=== PATIENT | female | born 1985 | race Caucasian/White ===

== ENCOUNTER 2020-03-07 15:07 | Outpatient (CLI) | payer OTHER, SELFPAY ==
--- NOTE | ~2020-03-07 | US_ITS ---
EXAMINATION: US breast LT limited HISTORY: Mastodynia of the inner left breast TECHNIQUE: Limited left breast ultrasound is performed. FINDINGS: There is no evidence of focal abnormal cystic or solid mass in the vicinity of the reported left breast pain. IMPRESSION: No specific sonographic correlate is identified for the reported left breast pain. Further evaluation at this time should be based on clinical assessment. Continued follow-up physical examination is rec ommended. BI-RADS Category 1: Negative Reviewed, dictated and finalized at location A. [place] [employer] IMPRESSION: No specific sonographic correlate is identified for the reported left breast pa in. Further evaluation at this time should be based on clinical assessment. Con tinued follow-up physical examination is recommended. BI-RADS Category 1: Negative
== END 2020-03-07 15:08 | disposition home or self-care (01) ==
PROVIDERS: Visit Provider Nurse Practitioner Obstetrics & Gynecology
DX: N64.4 Mastodynia (principal)
CPT/HCPCS: 76642

== ENCOUNTER → 2020-04-20 05:57 | Outpatient (CLI) | payer OTHER, SELFPAY ==
[2020-04-20 19:10] LABS: SARS-CoV-2 RNA PCR Negative
== END ==
PROVIDERS: Visit Provider Obstetrics & Gynecology
DX: Z01.812 Encounter for preprocedural laboratory examination (principal); Z20.822 Contact with and (suspected) exposure to COVID-19
CPT/HCPCS: C9803; U0003; U0005

== ENCOUNTER 2020-04-20 09:00 | Outpatient (CLI) | payer OTHER, SELFPAY ==
--- NOTE | 2020-04-20 09:24 | ECG_ITS ---
Measurements Intervals [place] Rate: 46 P: 47 MT: 130 QRS: 48 QRSD: 98 T: 64 QT: 408 QTc: 358 Interpretive Statements SINUS BRADYCARDIA WITH SINUS ARRHYTHMIA INCOMPLETE RIGHT BUNDLE BRANCH BLOCK ABNORMAL ECG Electronically Signed On 04-20-2020 9:35:27 [employer] by Calin Zavala D.O.
[2020-04-20 09:31] LABS: Hematocrit 40.5 % (37.0-47.0); Hemoglobin 13.7 g/dL (12.0-15.0)
[2020-04-20 09:39] LABS: Anion Gap 6 mmol/L (8-16); Blood Urea Nitrogen 14 mg/dL (7-17); Calcium 9.6 mg/dL (8.4-10.2); Carbon Dioxide 31 mmol/L (22-30); Chloride 103 mmol/L (98-107); Estimated Glomerular Filt Rate > 60; Glucose 69 mg/dL (65-105); Potassium 3.3 mmol/L (3.4-5.0); Sodium 140 mmol/L (137-145)
== END 2020-04-20 09:01 | disposition home or self-care (01) ==
PROVIDERS: PCP Physician Assistant; Visit Provider Anesthesiology
DX: E78.5 Hyperlipidemia, unspecified (principal); D64.9 Anemia, unspecified; I10 Essential (primary) hypertension; Z01.818 Encounter for other preprocedural examination; I45.10 Unspecified right bundle-branch block
CPT/HCPCS: 36415; 80048; 85014; 85018; 93005; C9803; U0003; U0005

== ENCOUNTER 2020-04-24 00:46 | Day surgery (SDC) | payer OTHER, SELFPAY ==
[2020-04-16 15:34] VITALS: BMI 19.1
[2020-04-24] VITALS (8 sets, daily range): BP systolic 96–120; BP diastolic 43–77; PULSE 42–67; RESP 13–15; TEMP 36.5–36.7; O2SAT 97–100
[2020-04-24] MEDS: ACETAMINOPHEN 500 MG TABLET 1000 MG PO (08:19)
[2020-04-24] MEDS: LACTATED RINGERS 1,000 ML 30 ML IV CONT ×2 (08:29→12:56)
[2020-04-24] MEDS: KETOROLAC 15 MG/ML VIAL (*BKC) IV PUSH (08:31)
--- NOTE | 2020-04-24 10:01 | WPDANESEPPF ---
Anes - Initial Pre Proc Eval Procedure: Operation Date: 04/24/20 10:00 Proposed Procedures p Laparoscopic Bilateral Salpingo-Oophorectomy - Renate Tang MD Date/Time: 04/24/20 10:01 Surgeon: Renate Tang MD Pre Op Diagnosis: pelvic pain Patient Data Age: 34 Gender: F Height: 5 ft 1 in Weight: 44.6 kg Last Vital Signs Temp 98.1 F 04/24/20 08:06 Pulse 67 04/24/20 08:06 Resp 14 04/24/20 08:06 BP 118/74 04/24/20 08:06 Pulse Ox 100 04/24/20 08:06 Allergies Allergy/AdvReac Type Severity Reaction Status Date / Time tramadol Allergy Mild Itching Verified 04/24/20 08:13 Home Medications Medication Instructions Recorded Confirmed Type atenolol-chlorthalidone 1 tablet PO DAILY 04/16/20 04/24/20 History cetirizine 10 mg PO DAILY 04/16/20 04/24/20 History dicyclomine 20 mg PO DAILY 04/16/20 04/24/20 History ferrous sulfate [iron] 325 mg PO DAILY 04/16/20 04/24/20 History lovastatin 40 mg PO DAILY 04/16/20 04/24/20 History magnesium oxide 400 mg PO DAILY 04/16/20 04/24/20 History montelukast 10 mg PO DAILY 04/16/20 04/24/20 History omeprazole 20 mg PO DAILY 04/16/20 04/24/20 History sucralfate 1 g PO DAILY 04/16/20 04/24/20 History Patient hx anesthesia problems: none Family hx anesthesia problems: none [facility] Past Medical History Medical History (Updated 04/24/20 @ 09:57 by Pablo Natarajan MD) GERD (gastroesophageal reflux disease) Hyperlipidemia Hypertension Social History Social History Smoking packs per day: 0.5 Smoking cigarettes per day: 10.0 Years smoked: 15 Smoking pack-years: 7.50 Smoking status: Current every day smoker Tobacco type: cigarettes Alcohol intake: never Living arrangements: with family Gender identity (if verbalized by the patient): Female Spiritual care concerns: No Anes - Eval Final PreProcedure Day of Procedure 04/24/20 10:01 Patient weight: normal Heart: regular rate and rhythm Lungs: clear to auscultation Airway: Mallampati scale class III Neurological: alert and oriented Last oral intake: >/= 8 hours ASA classification: III Emergent: no Anesthetic plan: proceed Anesthesia type and monitoring: general ETT and standard monitoring Informed Consent: The patient's anesthetic plan and its attendant risks and benefits were discussed with the patient/family/POA. Questions were solicited and answers provided to the satisfaction of the patient/family/POA.
--- NOTE | 2020-04-24 10:06 | SUR.PREOP ---
1000 updated pt on delay in procedure.
--- NOTE | 2020-04-24 11:19 | WPDHPUPDATE1 ---
History and Physical Update Update Date/Time: 04/24/20 11:19 History and Physical has been reviewed, including an updated exam of the patient. There are NO changes in the patient's condition. Risks, benefits, and alternatives have been discussed and questions answered. Patient agrees to proceed with procedure.
--- NOTE | 2020-04-24 12:59 | P.OP_ITS ---
Procedure Note - Detailed Date of procedure: 04/24/20 Pre-op diagnosis: pelvic pain Procedure performed: Laparoscopic adhesiolysis Adhesiolysis, bilateral oophorectomy Description of procedure: The patient was taken the operating room. She was prepped and draped in the dorsal lithotomy position after induction of general anesthesia. A 5 mm left upper quadrant incision was made in the abdominal skin with a scalpel. A 5 mm trocar was inserted the intra-abdominal cavity under direct visualization of the scope. A 5 mm left lower quadrant incision was made with the scalp on the abdominal skin and a 5 mm trocar was inserted the intra- abdominal cavity under direct visualization of the scope. A 5 mm infraumbilical incision was made with scalpel and a 5 mm trocar was inserted into the intra- abdominal cavity under direct visualization of the scope. Adhesiolysis was performed using sharp and blunt dissection and cautery. The omentum was adherent to the anterior pelvis. In the area were some cautery was performed on the left lower side the ureter was dissected out found to be unharmed and patent the through the level of the uterine artery. The bilateral ovaries were removed. No tubes were visible. The ovary was raised and the infundibulopelvic ligaments were cauterized. The the infundibulopelvic ligament was cauterized scissors. The para ovarian tissue on the pelvic sidewall was cauterized and transected and the ovaries were amputated. There were small enough to take out through a 5 mm trocar. The pelvis was irrigated with copious amounts of normal saline. The pneumoperitoneum was reduced. The trocars were removed. The patient was taken recovery room stable condition. Sponge lap and needle counts were correct x2. Anesthesia: GETA Surgeon: Renate Tang MD Estimated blood loss (mL): 20 Drains: No Packing: No Complications: No immediate complications Condition: stable Disposition: PACU Findings: Streak ovaries, adhesions between the omentum and anterior pelvis. Absent uterus and tubes.
[2020-04-24] MEDS: fentaNYL CITRATE INJ (*CRX) 100 MCG/2 ML VIAL 25 MCG IV PUSH (13:33)
== END 2020-04-24 14:55 | disposition home or self-care (01) ==
PROVIDERS: PCP Physician Assistant; Visit Provider Obstetrics & Gynecology
PROC: (CPT 49320; principal; 2020-04-24 10:00)
DX: R10.2 Pelvic and perineal pain (principal); N73.6 Female pelvic peritoneal adhesions (postinfective); N00-N99 Diseases of the genitourinary system; Z90.710 Acquired absence of both cervix and uterus; I10 Essential (primary) hypertension; E78.5 Hyperlipidemia, unspecified; K21.9 Gastro-esophageal reflux disease without esophagitis; F17.210 Nicotine dependence, cigarettes, uncomplicated
CPT/HCPCS: 58661; 88305; A9270; J0330; J1100; J1170; J1885; J2250; J2405; J2704; J3010; J7030; J7120

== ENCOUNTER 2020-06-13 10:12 | Outpatient (CLI) | payer OTHER, SELFPAY ==
--- NOTE | 2020-06-13 11:30 | NEURO_ITS ---
Impression: # Complains of numbness of feet. # No responses from right superficial peroneal nerve. # Normal nerve conduction study otherwise including bilateral lateral planter nerves. # Normal needle/EMG exam. Nerve Conduction Studies Anti Sensory Summary Table Stim Site NR Peak (ms) P-T Amp (?V) Site1 Site2 Delta-P (ms) Dist (cm) Moody (m/s) Left Sup Fibular Anti Sensory (Ant Lat Mall) 14 cm 4.0 23.3 14 cm Ant Lat Mall 4.0 16.0 40 Right Sup Fibular Anti Sensory (Ant Lat Mall) NO RESPONSE 14 cm NR 14 cm Ant Lat Mall 16.0 Left Sural Anti Sensory (Lat Mall) Calf 4.3 11.0 Calf Lat Mall 4.3 16.0 37 Right Sural Anti Sensory (Lat Mall) Calf 4.4 18.6 Calf Lat Mall 4.4 16.0 36 Motor Summary Table Stim Site NR Onset (ms) O-P Amp (mV) Site1 Site2 Delta-0 (ms) Dist (cm) Moody (m/s) Left Lateral Plantar Motor (ADM) Med Mall 5.0 6.2 Right Lateral Plantar Motor (ADM) Med Mall 4.9 1.4 Left Peroneal Motor (Vastus Med) Ankle 5.0 5.2 Popit Ankle 8.0 37.0 46 Popit 13.0 4.0 Right Peroneal Motor (Vastus Med) Ankle 4.9 6.5 Popit Ankle 7.1 35.0 49 Popit 12.0 5.5 Left Tibial Motor Run #1 (Abd Huitron Brev) Ankle 4.9 2.1 Knee Ankle 8.6 40.0 47 Knee 13.5 1.2 Right Tibial Motor (Abd Huitron Brev) Ankle 5.0 8.5 Knee Ankle 8.5 39.0 46 Knee 13.5 5.2 F Wave Studies NR F-Lat (ms) L-R F-Lat (ms) Left Peroneal (Mrkrs) (EDB) 48.25 1.63 Right Peroneal (Mrkrs) (EDB) 49.88 1.63 Left Tibial (Mrkrs) (Abd Hallucis) 49.31 0.57 Right Tibial (Mrkrs) (Abd Hallucis) 49.88 0.57 EMG Side Muscle Nerve Root Ins Act Fibs Amp Dur Recrt Comment Right AntTibialis Dp Br Fibular L4-5 Nml Nml Nml Nml Nml Right Gastroc Tibial S1-2 Nml Nml Nml Nml Nml Right Fibularis Long Sup Br Fibular L5-S1 Nml Nml Nml Nml Nml Right Flex Dig Long Tibial L5-S2 Nml Nml Nml Nml Nml Right Ext Dig Brev Dp Br Fibular L5, S1 Nml Nml Nml Nml Nml Left AntTibialis Dp Br Fibular L4-5 Nml Nml Nml Nml Nml Left Gastroc Tibial S1-2 Nml Nml Nml Nml Nml Left Fibularis Long Sup Br Fibular L5-S1 Nml Nml Nml Nml Nml Left Flex Dig Long Tibial L5-S2 Nml Nml Nml Nml Nml Left Ext Dig Brev Dp Br Fibular L5, S1 Nml Nml Nml Nml Nml MTDD
== END 2020-06-13 10:13 | disposition home or self-care (01) ==
PROVIDERS: PCP Physician Assistant; Visit Provider Physician Assistant
DX: G62.9 Polyneuropathy, unspecified (principal)
CPT/HCPCS: 95886; 95911

== ENCOUNTER 2020-09-24 08:01 | Outpatient (CLI) | payer OTHER, SELFPAY ==
--- NOTE | ~2020-09-24 | CT_ITS ---
EXAMINATION: CT abdomen pelvis w con INDICATION: Pelvic and perineal pain TECHNIQUE: Computed tomographic images of the abdomen and pelvis were obtained after the administrati on of 85 cc of Omnipaque 350 intravenous contrast. The dose-length product (DLP) was 163.45 mGy-cm. A utomated exposure control and iterative reconstruction technique were employed. COMPARISON: None available FINDINGS: The lung bases are clear. The heart size is normal. There is a 3 mm cyst in the liver. The spleen, pancreas, gallbladder, and adrenal glands are normal. No pathologically enlarged abdominal or pelvic lymph nodes are identified. There is no free intraperitoneal gas or evidence of bowel obstruc tion. The kidneys are unremarkable. There is circumferential thickening of the urinary bladder wall w ith mild edematous stranding of the adjacent fat. The appendix is normal. IMPRESSION: 1. Wall thickening of the urinary bladder with mild stranding of the surrounding fat, suggestive of c ystitis. Recommend correlation with urinalysis. Reviewed, dictated and finalized at location A. IMPRESSION: 1. Wall thickening of the urinary bladder with mild stranding of the surroundin g fat, suggestive of cystitis. Recommend correlation with urinalysis.
[2020-09-24 08:44] LABS: Estimated Glomerular Filt Rate > 60
== END 2020-09-24 08:02 | disposition home or self-care (01) ==
LOC: ANHIMG 08:05
PROVIDERS: PCP Physician Assistant; Visit Provider Obstetrics & Gynecology
DX: R10.2 Pelvic and perineal pain (principal)
CPT/HCPCS: 74177; Q9967

== ENCOUNTER 2021-07-24 00:56 | Day surgery (SDC) | payer OTHER, SELFPAY ==
[2021-07-10 10:41] VITALS: BMI 16.2
[2021-07-24 08:12] VITALS: BP 125/90; PULSE 80; RESP 18; TEMP 36.3; O2SAT 100
--- NOTE | 2021-07-24 08:36 | WPDHPUPDATE1 ---
History and Physical Update Update Date/Time: 07/24/21 08:36 History and Physical has been reviewed, including an updated exam of the patient. There are NO changes in the patient's condition. Risks, benefits, and alternatives have been discussed and questions answered. Patient agrees to proceed with procedure.
[2021-07-24] MEDS: LACTATED RINGERS 1,000 ML 150 ML IV CONT (08:43)
--- NOTE | 2021-07-24 09:10 | WPDANESEPPF ---
Anes - Initial Pre Proc Eval Procedure: Operation Date: 07/24/21 09:45 Proposed Procedures p Colonoscopy - Volodymyr Chacon MD Date/Time: 07/24/21 09:10 Surgeon: Volodymyr Chacon MD Pre Op Diagnosis: abdominal pain Patient Data Age: 35 Gender: F Height: 1.55 m Weight: 39.5 kg Last Vital Signs Temp 97.4 F L 07/24/21 08:12 Pulse 80 07/24/21 08:12 Resp 18 07/24/21 08:12 BP 125/90 07/24/21 08:12 Pulse Ox 100 07/24/21 08:12 O2 Del Method Room Air 07/24/21 08:12 Allergies Allergy/AdvReac Type Severity Reaction Status Date / Time tramadol Allergy Mild Itching Verified 07/24/21 08:11 Home Medications Medication Instructions Recorded Confirmed Type atenolol 100 mg-chlorthalidone 25 1 tablet PO DAILY 04/16/20 07/10/21 History mg tablet ferrous sulfate 325 mg (65 mg 325 mg PO DAILY 04/16/20 07/10/21 History iron) tablet (iron) lovastatin 40 mg tablet 40 mg PO DAILY 04/16/20 07/10/21 History magnesium oxide 400 mg (241.3 mg 400 mg PO DAILY 04/16/20 07/10/21 History magnesium) tablet montelukast 10 mg tablet 10 mg PO DAILY 04/16/20 07/10/21 History sucralfate 1 gram tablet 1 g PO DAILY 04/16/20 07/10/21 History hyoscyamine sulfate 0.125 mg tablet 0.125 mg PO QID PRN abdominal 07/04/21 07/10/21 Rx discomfort 1 month #120 tabs omeprazole 20 mg capsule,delayed 20 mg PO DAILY PRN Indigestion 07/10/21 07/10/21 History release Patient hx anesthesia problems: none Family hx anesthesia problems: none Results Review: All pre-operative results and documents have been reviewed as part of the pre-operative evaluation. PENDING SALE TO [facility] Past Medical History Medical History (Updated 06/26/21 @ 12:54 by PETER Esparza) GERD (gastroesophageal reflux disease) Hyperlipidemia Hypertension Underweight Social History Social History Smoking packs per day: 0.5 Smoking cigarettes per day: 10.0 Years smoked: 20 Smoking pack-years: 10.00 Smoking status: Current every day smoker Tobacco type: cigarettes Alcohol intake: never Living arrangements: with family Gender identity (if verbalized by the patient): Female Spiritual care concerns: No Anes - Eval Final PreProcedure Day of Procedure 07/24/21 09:10 Patient weight: normal Heart: regular rate and rhythm Lungs: clear to auscultation Airway: Mallampati scale class III Neurological: alert and oriented Last oral intake: >/= 8 hours ASA classification: III Emergent: no Anesthetic plan: proceed Anesthesia type and monitoring: general GIVS and standard monitoring Results Review: All pre-operative results and documents have been reviewed as part of the pre-operative evaluation. Informed Consent: The patient's anesthetic plan and its attendant risks and benefits were discussed with the patient/family/POA. Questions were solicited and answers provided to the satisfaction of the patient/family/POA.
[2021-07-24] MEDS: SIMETHICONE ORAL SUSPENSION 20 MG/0.3 ML 30 ML BOTTLE 0.6 ML IRRIGATION (10:27)
[2021-07-24 10:36] VITALS: BP 105/74; PULSE 64; RESP 20; O2SAT 99
[2021-07-24 10:46] VITALS: BP 97/72; PULSE 66; RESP 15; O2SAT 100
[2021-07-24 10:56] VITALS: BP 120/90; PULSE 58; RESP 30; O2SAT 100
== END 2021-07-24 11:08 | disposition home or self-care (01) ==
PROVIDERS: PCP Physician Assistant; Visit Provider Internal Medicine Gastroenterology
PROC: 0DJD8ZZ Inspection of Lower Intestinal Tract, Via Natural or Artificial Opening Endoscopic (ICD-10-PCS; CPT 45378; principal; 2021-07-24 09:45)
DX: R10.30 Lower abdominal pain, unspecified (principal); K21.9 Gastro-esophageal reflux disease without esophagitis; E78.5 Hyperlipidemia, unspecified; I10 Essential (primary) hypertension; Z72.0 Tobacco use; Z90.710 Acquired absence of both cervix and uterus; R63.6 Underweight; K64.8 Other hemorrhoids
CPT/HCPCS: 45378; J2704; J7120

== ENCOUNTER 2021-09-25 09:37 | Outpatient (CLI) | payer OTHER, SELFPAY ==
[2021-09-25 10:43] LABS: Hematocrit 40.6 % (37.0-47.0); Hemoglobin 13.3 g/dL (12.0-15.0); Mean Corpuscular HGB Conc 32.8 g/dl (32-36); Mean Corpuscular Hemoglobin 33.2 pg (26-34); Mean Corpuscular Volume 101.2 fl (80-100); Mean Platelet Volume 9.3 fl (7.4-10.4); Platelet Count Result 245 k/mm3 (150-375); Red Blood Count 4.01 M/mm3 (4.2-5.4); Red Cell Distribution Width 11.8 % (11.5-14.5); White Blood Count 4.5 K/mm3 (4.5-10.0)
[2021-09-25 11:06] LABS: Alanine Aminotransferase 13 U/L (6-35); Albumin Level 4.9 g/dL (3.5-5.1); Alkaline Phosphatase 67 U/L (38-126); Amylase 71 U/L (30-110); Aspartate Amino Transferase 28 U/L (14-36); Bilirubin,Total 0.7 mg/dL (0.2-1.3); CRP < 0.5 mg/dL (<1.0); Lipase 48 U/L (23-300)
[2021-09-25 11:35] LABS: HIV 1/2 Ab P24 Ag Result Negative (Negative)
[2021-09-25 12:23] LABS: Thyroid Stimulating Hormone Reflex 0.811 uIU/mL (0.465-4.68)
[2021-09-25 12:27] LABS: Hepatitis B Surface Antigen Negative (Negative)
[2021-09-25 12:32] LABS: HAV RESULT Negative (Negative); Hepatitis B Core IgM Result Negative (Negative)
[2021-09-25 12:44] LABS: Hepatitis C Virus Antibody Negative (Negative)
== END 2021-09-25 09:38 | disposition home or self-care (01) ==
LOC: ANHLAB 09:39
PROVIDERS: PCP Physician Assistant; Visit Provider Nurse Practitioner
DX: R11.0 Nausea (principal); R63.4 Abnormal weight loss; R10.9 Unspecified abdominal pain; G89.29 Other chronic pain
CPT/HCPCS: 36415; 80074; 80076; 82150; 83690; 84443; 85027; 86140; 86703; G0432

== ENCOUNTER 2024-07-27 10:11 | Outpatient (CLI) | payer OTHER, SELFPAY ==
--- NOTE | ~2024-07-27 | US_ITS ---
US art doppler w press LE BI INDICATION: Poor pulses. TECHNIQUE: Segmental pressures and plethysmographic and Doppler waveforms of the brachial and lower e xtremity arteries were obtained. COMPARISON: None. FINDINGS: Right and left brachial artery pressures of 151 mm Hg and 1:15 mm Hg, respectively, are concordant (n ormal difference <= 30 mmHg). There is mixed biphasic and triphasic flow in the lower extremity arter ies. The right ankle-brachial index (CAMILLE) is 1.02 (normal >= 0.9-1.0). The right great toe-brachial index (TBI) is 0.75 (normal >= 0.60). The left CAMILLE is 1.08. The left TBI is 0.74. IMPRESSION: 1. Normal ankle-brachial indices. Reviewed, dictated and finalized at location A.
--- OUTSIDE RECORDS SUMMARY | 2024-07-27 10:17 | XMS_ITS | Data Portability ---
Author Organization [facility] [employer], Main Office Address [address] [place] [address] Assessment No assessment recorded. Plan of Treatment Reminders Order Date Submit Date Provider Last Modified By Organization Details Last Modified Time Details Appointments None recorded. Lab None recorded. Referral vascular referral - redness on toes 2023 024 KATHERINE Smith PA-C, [address] [facility], [address]th [address], [place], [address], 05:01:48 Procedures None recorded. Surgeries None recorded. Imaging None recorded. Medication Orders None recorded. Patient Targets Encounter Date Encounter Id Patient Goals Patient Target Last Modified By Organization Details Last Modified Time Patient likely has Raynauds and will follow up outpatient at our [facility] location. Patient should call our office if she experiences further pain, leg coldness, numbness or tingling. [email or web address] Not available 12/13/2023 12:57:10 Patient InstructionsNo instructions recorded. Reason for Referral Vascular Referral for Vascul itis redness on toes Referring Physician: Yimi Morfin, Podiatry, Encounter Date: 12/02/2023 Results Created Date Observation Date Name Description Value Unit Range Abnormal Flag Note LastModifiedBy Organization Detail LastModifiedTime 10/11/1910/10/2020 urina lysis , dipst ick Leukocytes (reference range: negative zeb/ l) Negati ve Not Available [facility] [address] [facility], [address], [place], [address], 10/10/2020 09:52:03 10/11/19 21 10/10/2020 urina lysis , dipst ick Nitrite (reference rage: negative mg/dl) negati ve Not Available [address], [address], 10/10/2020 09:52:03 10/11/19 21 10/10/2020 urina lysis , dipst ick Urobilinogen (reference range: 0.2-1 mg/dl) 0.2 Not Available [address], [address], 10/10/2020 09:52:03 10/11/19 21 10/10/2020 urina lysis , dipst ick Protein (reference range: negative mg/dl) Negati ve Not Available [address], [address], 10/10/2020 09:52:03 10/11/19 21 10/10/2020 urina lysis , dipst ick pH (reference range: 5-7) 6.0 Not Available [address], [address], 10/10/2020 09:52:03 10/11/19 21 10/10/2020 urina lysis , dipst ick Blood (reference range: negative Dez/ l) Non-He molyze d: Trace Not Available [address], [address], 10/10/2020 09:52:03 10/11/19 21 10/10/2020 urina lysis , dipst ick Specific [place] (reference range: 1.005-1.030) 1.025 Not Available [address], [address], [address], 10/10/2020 09:52:03 10/11/19 21 10/10/2020 urina lysis , dipst ick Ketone (reference range: negative mg/dl) Negati ve Not Available [address], [address], 10/10/2020 09:52:03 10/11/1910/10/2020 urina lysis , dipst ick Bilirubin (reference range: negative mg/dl) Negati ve Not Available [address], [address], 10/10/2020 09:52:03 10/11/19 21 10/10/2020 urina lysis , dipst ick Glucose (reference range: negative mg/dl) Negati ve Not Available [address], [address], 10/10/2020 09:52:03 10/11/1910/10/2020 urina lysis , dipst ick Appearance Clear Not Available [address], [address], 10/10/2020 09:52:03 10/11/1910/10/2020 urina lysis , dipst ick Color Yellow Not Available [address], [address], 10/10/2020 09:52:03 10/25/19 21 10/24/2020 urina lysis , dipst ick Leukocytes (reference range: negative zeb/ l) Negati ve Not Available [address], [address], 10/24/2020 10:34:26 10/25/19 21 10/24/2020 urina lysis , dipst ick Nitrite (reference rage: negative mg/dl) negati ve Not Available [address], [address], 10/24/2020 10:34:26 10/25/19 21 10/24/2020 urina lysis , dipst ick Urobilinogen (reference range: 0.2-1 mg/dl) 0.2 Not Available [address], [address], 10/24/2020 10:34:26 10/25/19 21 10/24/2020 urina lysis , dipst ick Protein (reference range: negative mg/dl) Negati ve Not Available [address], [address], 10/24/2020 10:34:26 10/25/19 21 10/24/2020 urina lysis , dipst ick pH (reference range: 5-7) 7.0 Not Available [address], [address], 10/24/2020 10:34:26 10/25/19 21 10/24/2020 urina lysis , dipst ick Blood (reference range: negative Dez/ l) Negati ve Not Available [address], [address], 10/24/2020 10:34:26 10/25/19 21 10/24/2020 urina lysis , dipst ick Specific [place] (reference range: 1.005-1.030) 1.025 Not Available [address], [address], 10/24/2020 10:34:26 10/25/19 21 10/24/2020 urina lysis , dipst ick Ketone (reference range: negative mg/dl) Negati ve Not Available [address], [address], 10/24/2020 10:34:26 10/25/19 21 10/24/2020 urina lysis , dipst ick Bilirubin (reference range: negative mg/dl) Negati ve Not Available [address], [address], 10/24/2020 10:34:26 10/25/19 21 10/24/2020 urina lysis , dipst ick Glucose (reference range: negative mg/dl) Negati ve Not Available [address], [address], 10/24/2020 10:34:26 10/25/19 21 10/24/2020 urina lysis , dipst ick Appearance Clear Not Available [address], [address], 10/24/2020 10:34:26 10/25/19 21 10/24/2020 urina lysis , dipst ick Color Yellow Not Available [address], [address], 10/24/2020 10:34:26 12/06/19 21 12/05/2020 urina lysis , dipst ick Leukocytes (reference range: negative zeb/ l) Negati ve Not Available [address], [address], 12/05/2020 09:24:46 12/06/19 21 12/05/2020 urina lysis , dipst ick Nitrite (reference rage: negative mg/dl) negati ve Not Available [address], [address], 12/05/2020 09:24:46 12/06/19 21 12/05/2020 urina lysis , dipst ick Urobilinogen (reference range: 0.2-1 mg/dl) 0.2 Not Available [address], [address], 12/05/2020 09:24:46 12/06/1912/05/2020 urina lysis , dipst ick Protein (reference range: negative mg/dl) Negati ve Not Available [address], [address], 12/05/2020 09:24:46 12/06/19 21 12/05/2020 urina lysis , dipst ick pH (reference range: 5-7) 7.5 Not Available [address], [address], 12/05/2020 09:24:46 12/06/19 21 12/05/2020 urina lysis , dipst ick Blood (reference range: negative Dez/ l) Negati ve Not Available [address], [address], [address], 12/05/2020 09:24:46 12/06/19 21 12/05/2020 urina lysis , dipst ick Specific [place] (reference range: 1.005-1.030) 1.020 Not Available [address], [address], 12/05/2020 09:24:46 12/06/19 21 12/05/2020 urina lysis , dipst ick Ketone (reference range: negative mg/dl) Negati ve Not Available [address], [address], 12/05/2020 09:24:46 12/06/1912/05/2020 urina lysis , dipst ick Bilirubin (reference range: negative mg/dl) Negati ve Not Available [address], [address], 12/05/2020 09:24:46 12/06/1912/05/2020 urina lysis , dipst ick Glucose (reference range: negative mg/dl) Negati ve Not Available [address], [address], 12/05/2020 09:24:46 12/06/19 21 12/05/2020 urina lysis , dipst ick Appearance Clear Not Available [place] [address] [facility], [address], [place], [address], 12/05/2020 09:24:46 12/06/19 21 12/05/2020 urina lysis , dipst ick Color Pale Yellow Not Available [facility] [address] [facility], [address], [place], [address], 12/05/2020 09:24:46 07/16/19 22 XR, knee No observ ation record ed. [id number] [facility] [address] [facility], [place], [address], 04/29/2022 18:18:27 07/23/19 22 07/22/2021 MRI, knee, w/o contr ast [facility] [address] [facility] [place], [place] [address] [phone] Patien t Name: CYNDI JOEL Access ion #: [id number] Sex: F : 1985 8 Locati on: RAD Attend ing Physic kourtney: ROBYN CARCAMO Physic kourtney: ROBYN CARCAMO Exam Date: 022 1:46 PM Exam Name: MRI KNEE RT WO Admitt ing Diagno sis(es ): RADIOL OGY REPORT - FINAL EXAM: MRI KNEE RT WO HISTOR Y: right knee pain 35-yea r-old female with right knee pain medial ly, giving out, no known injury . COMPAR FER: Radiog raphs dated 2021; MRI dated 2019. TECHNI QUE: Multip lanar multis equenc e noncon trast MR images of the left knee were perfor med. FINDIN GS: There is patchy bone marrow edema of the medial margin of the medial femora l condyl e, withou t corres ryan g bone marrow edema of the latera l margin of the patell a. No displa ron fractu res are identi fied throug hout the right knee. The ACL, PCL, MCL, LCL, zay ceps tendon , patell ar tendon , and poplit eus Page 1 of 2 [facility] raimundo Name: CYNDI JOEL Access ion #: [id number] Sex: F : 1985 8 Exam Date: 1:46 PM Exam Name: MRI KNEE RT WO Admitt ing Diagno sis(es ): tendon are intact . The medial and latera l menisc i are intact . No signif icant latera l patell ar sublux ation. No signif icant chondr omalac ia. There is mild edema signal along the [employer] l aspect of the distal semime mbrano soniya tendon . There is a small joint effusi on. No poplit eal fossa cyst. IMPRES LB: 1. The crucia te ligame nts, collat eral ligame nts, and both menisc i are intact . 2. Bone marrow edema of the medial femora l condyl e may be due to contus ion from direct blow or transi ent patell ar disloc ation, althou gh there is no corres pondin g bone marrow edema of the latera l aspect of the right patell a. 3. Edema of the [employer] o[employer] l aspect of the knee is [employer] o[employer] l to the semime mbrano soniya tendon which may be due to mild bursit is or mild injury to the semite ndinos us tendon . 4. Small joint effusi on. Create d and electr onical ly signed by: Patricio gracia MD Signed Date: 4:32 PM (CT) Dictat ed by: Patricio gracia MD DD: 4:32 PM (CT) DT: 4:32 PM (CT) Page 2 of 2 [id number] [facility] ([facility]) [address] [place], [address], 04/29/2022 18:18:27 08/02/19 07/22/2021 MRI, knee, w/o contr ast [facility] [address] [place] [address] [phone] Kwame eubanks Name: CYNDI JOEL Access ion #: [id number] Sex: F : 1985 8 Locati on: RAD Attend ing Physic kourtney: ROBYN CARCAMO Orderi ng Physic kourtney: ROBYN CARCAMO Exam Date: 022 1:46 PM Exam Name: MRI KNEE RT WO Admitt ing Diagno sis(es ): RADIOL OGY REPORT - FINAL WITH ADDEND UM ADDEND UM: CORREC KANA TECHNI QUE: Multip lanar multis equenc e noncon trast MR images of the right knee were perfor med. Create d and electr onical ly signed by: Patricio gracia MD Signed Date: 08/02/19 9:15 AM (CT) Dictat ed by: Patricio gracia MD (CT) (CT) Report _ID: [id number] EXAM: MRI KNEE RT WO Page 1 of 3 [facility] Kwame eubanks Name: CYNDI JOEL Access ion #: [id number] Sex: F : 1985 8 Exam Date: 022 1:46 PM Exam Name: MRI KNEE RT WO Admitt ing Diagno sis(es ): HISTOR Y: right knee pain 35-yea r-old female with right knee pain medial ly, giving out, no known injury . COMPAR FER: Radiog raphs dated 2021; MRI dated 2019. TECHNI QUE: Multip lanar multis equenc e noncon trast MR images of the left knee were perfor med. FINDIN GS: There is patchy bone marrow edema of the medial margin of the medial femora l condyl e, withou t bryans ryan g bone marrow edema of the latera l margin of the patell a. No displa ron fractu res are identi fied throug hout the right knee. The ACL, PCL, MCL, LCL, zay ceps tendon , patell ar tendon , and poplit eus tendon are intact . The medial and latera l menisc i are intact . No signif icant latera l patell ar sublux ation. No signif icant chondr omalac ia. There is mild edema signal along the [employer] l aspect of the distal semime mbrano soniya tendon . There is a small joint effusi on. No poplit eal fossa cyst. IMPRES LB: 1. The crucia te ligame nts, collat eral ligame nts, and both menisc i are intact . 2. Bone marrow edema of the medial femora l condyl e may be due to contus ion from direct blow or transi ent patell ar disloc ation, althou gh there is no corres pondin g bone marrow edema of the latera l aspect of the right patell a. 3. Edema of the [employer] l aspect of the knee is [employer] l to the semime mbrano soniya tendon which may be due to mild bursit is or mild injury to Page 2 of 3 [facility] Pati t Name: CYNDI JOEL Access ion #: [id number] Sex: F : 1985 8 Exam Date: 1:46 PM Exam Name: MRI KNEE RT WO Admitt ing Diagno sis(es ): the semite ndinos us tendon . 4. Small joint effusi on. Create d and electr onical ly signed by: Patricio gracia MD Signed Date: 4:32 PM (CT) Dictat ed by: Patricio gracia MD DD: 4:32 PM (CT) DT: 4:32 PM (CT) Page 3 of 3 [id number] [facility] ([facility]) [address] [place], [address], 04/29/2022 18:18:27 Result Notes None recorded. Problems Name Problem SNOMED Code Status Onset Date Resolution Date Notes Provider Name and Address Organization Details Recorded Time Inguinal pain 938349004 Active Not Available [facility] 3 18:17:48 Superficia l peroneal neuropathy 893613475 Active Not Available [facility] 3 18:17:48 Gastroesop hageal reflux disease 261485892 Active Not Available [facility] 3 18:17:48 Ankle pain 231402175 Active Not Available [facility] 3 18:17:48 Low back pain 643073449 Active Not Available [facility] 3 18:17:48 Tear of medial meniscus of knee 181671643 Active 2021 Not Available [facility] 3 18:17:49 Pain of right lower leg 8289666699578 08 Active 2021 Not Available [facility] 3 18:17:49 Hyperthyro idism 96929541 Active Not Available [facility] 3 18:17:49 Unintentio nal weight loss 758254665 Active Not Available [facility] 3 18:17:49 Pain of right knee joint 1708001840683 00 Active 2021 Not Available [facility] 3 18:17:49 Anxiety 38975222 Active Not Available [facility] 3 18:17:49 Hyperlipid emia 48172743 Active Not Available [facility] 3 18:17:49 Chronic gastritis 2970891 Active Not Available [facility] 3 18:17:49 Vasculitis 37219450 Active 2023 SANTA Silva null, [facility] [employer] 4 14:52:13 Raynaud's disease 559147202 Active 2024 Cait Smith PA-C [address] [place] [address], [address] , [facility] [employer] 5 13:09:28 Problem Notes None recorded. Procedures Surgical History Date Name Laterality Status Provider Name and Address Organization Details Recorded Time 12/13/19 24 Blank Procedure Note completed Jabier Summers RN [facility] [employer] [facility] 12/13/2023 12:57:06 EGD completed Not Available [facility] 04/29/2022 18:17:42 loop electrosurgical excision procedure completed Not Available [facility] 04/29/2022 18:17:42 oophorectomy completed Not Available [facility] 04/29/2022 18:17:42 Hysterectomy completed Not Available [facility] 04/29/2022 18:17:42 ligation of bilateral fallopian tubes completed Not Available [facility] 04/29/2022 18:17:42 insertion of cardiac monitoring implant using fluoroscopic guidance completed Not Available [facility] 04/29/2022 18:17:42 Imaging Results None recorded. Procedure Notes None recorded. Medical Equipment None Reported. Allergies Allergen ID Allergen Name Allergen Category Reaction Reaction Severity Criticality Documentation Date Start Date Code Code System Note Provider Name and Address Organization Details Recorded Time 51657 tramadol medicatio n Not available Not available Not available 04/29/2022 49280 RxNorm Not Available [facility] 3 18:18:26 29382 ibuprofen medicatio n Not available Not available Not available 04/29/2022 5640 RxNorm Not Available [facility] 3 18:18:26 Medications Name Sig Start Date Stop Date Status Note LastModified by Organization Details LastModified Time celecoxib 200 mg capsule TAKE 400 MG LOADING DOSE 1 TIME AND THEN MAY TAKE 200 MG TWICE DAILY FOR MAX OF 7 DAYS 10/10 completed Not Available Not Available Not Available cyclobenzap rine 10 mg tablet TAKE 1 TABLET BY MOUTH THREE TIMES DAILY NEEDED FOR MUSCLE SPASM MAY CAUSE DROWSINES S 10/10 completed Not Available Not Available Not Available amoxicillin 500 mg capsule 10/09 completed Not Available Not Available Not Available fluconazole 100 mg tablet TAKE 2 TABS BY MOUTH ON DAY 1 AND THEN TAKE 1 TAB DAILY ON DAYS 2 7 10/10 completed Not Available Not Available Not Available bupropion HCl SR 150 mg tablet,12 hr sustained-r elease active Not Available Not Available Not Available prednisone 10 mg tablet TAKE 1 TAB BY MOUTH, 3 TIMES A DAY FOR 3 DAYS TAKE 2 TABS BY MOUTH 2 TIMES A DAY FOR 2 DAYS TAKE 1 TAB BY MOUTH ONCE A DAY FOR ONE DAY active Not Available Not Available No t Available atenolol 100 mg-chlortha lidone 25 mg tablet TAKE 1 TABLET BY MOUTH ONCE DAILY active Not Available Not Available No t Available nicotine 14 mg/24 hr daily transdermal patch APPLY 1 PATCH TOPICALLY ONCE DAILY DIRECTED FOR 14 DAYS active Not Available Not Available No t Available trazodone 50 mg tablet TAKE 1 TABLET BY MOUTH ONCE DAILY active Not Available Not Available No t Available polyethylen e glycol 3350 17 gram oral powder packet 10/10 completed Not Available Not Available Not Available cetirizine 10 mg tablet TAKE 1 TABLET BY MOUTH ONCE DAILY active Not Available Not Available No t Available Tab-A-Jane tablet 10/09 completed Not Available Not Available Not Available azithromyci n 250 mg tablet TAKE 2 TABLETS BY MOUTH ON DAY 1 AND THEN TAKE 1 TABLET BY MOUTH ONCE A DAY ON DAY 2 THROUGH DAY 5 10/10 completed Not Available Not Available Not Available ibuprofen 800 mg tablet TAKE 1 TABLET BY MOUTH THREE TIMES DAILY WITH FOOD NEEDED (MUST MAKE APPT) active Not Available Not Available No t Available Lidocaine Viscous 2 % mucosal solution SWISH AND SPIT OUT 5 ML EVERY 6 HOURS MAY USE UP TO 4 TIMES DAILY FOR TOOTH PAIN DO NOT SWALLOW 10/10 completed Not Available Not Available Not Available benzonatate 200 mg capsule TAKE 1 CAPSULE BY MOUTH THREE TIMES DAILY active Not Available Not Available No t Available metoprolol succinate ER 50 mg tablet,exte nded release 24 hr TAKE 1 TABLET BY MOUTH ONCE DAILY IN THE MORNING active Not Available Not Available No t Available cephalexin 250 mg capsule 10/09 completed Not Available Not Available Not Available hydrocodone 5 mg-acetamin ophen 325 mg tablet TAKE 1 TABLET BY MOUTH EVERY 6 HOURS 12/05 completed Not Available Not Available Not Available sucralfate 1 gram tablet TAKE 1 TABLET BY MOUTH THREE TIMES DAILY BEFORE MEAL(S) AND 1 TAB AT BEDTIME 10/10 completed Not Available Not Available Not Available phenazopyri dine 200 mg tablet TAKE 1 TABLET BY MOUTH THREE TIMES DAILY active Not Available Not Available No t Available ondansetron HCl 4 mg tablet 10/09 completed Not Available Not Available Not Available lovastatin 40 mg tablet TAKE 1 TABLET BY MOUTH ONCE DAILY active Not Available Not Available No t Available sertraline 100 mg tablet 10/09 completed Not Available Not Available Not Available clindamycin HCl 150 mg capsule 10/09 completed Not Available Not Available Not Available topiramate 25 mg tablet TAKE 2 TABLETS BY MOUTH ONCE DAILY AT BEDTIME 10/10 completed Not Available Not Available Not Available potassium chloride ER 10 mEq tablet,exte nded release TAKE 1 TABLET BY MOUTH ONCE DAILY active Not Available Not Available No t Available metronidazo le 500 mg tablet 10/09 completed Not Available Not Available Not Available acetaminoph en 300 mg-codeine 30 mg tablet 10/10 completed Not Available Not Available Not Available doxepin 10 mg capsule TAKE 1 CAPSULE BY MOUTH ONCE DAILY AT BEDTIME active Not Available Not Available No t Available sulfamethox azole 800 mg-trimetho prim 160 mg tablet 10/09 completed Not Available Not Available Not Available guaifenesin 200 mg tablet 10/09 completed Not Available Not Available Not Available prednisone 10 mg tablets in a dose pack Take 1 tab by mouth, 3 times a day for 3 daysTake 1 tab by mouth 2 times a day for 2 daysTake 1 tab by mouth once a day for 1 day active Not Available Not Available No t Available nortriptyli ne 25 mg capsule TAKE 1 TABLET BY MOUTH AT BEDTIME FOR 1 WEEK AND THEN INCREASE TO 2 TABS AT BEDTIME 07/15 completed Not Available Not Available Not Available cyproheptad ine 4 mg tablet 07/15 completed Not Available Not Available Not Available meloxicam 7.5 mg tablet 10/09 completed Not Available Not Available Not Available oxycodone-a cetaminophe n 5 mg-325 mg tablet TAKE 1 TABLET BY MOUTH EVERY 6 HOURS 10/10 completed Not Available Not Available Not Available amitriptyli ne 25 mg tablet TAKE 1 TABLET BY MOUTH ONCE DAILY AT BEDTIME 10/10 completed Not Available Not Available Not Available magnesium oxide 400 mg (241.3 mg magnesium) tablet TAKE 1 TABLET BY MOUTH TWICE DAILY active Not Available Not Available No t Available estradiol 1 mg tablet TAKE 1 TABLET BY MOUTH ONCE DAILY active Not Available Not Available No t Available triamcinolo ne acetonide 0.1 % dental paste APPY 1 SMALL APPLICATI ON AT NIGHT BEFORE BED. (APPLY 3 TIMES DAILY AFTER MEALS IF SEVERE) 07/15 completed Not Available Not Available Not Available tamsulosin 0.4 mg capsule 10/09 completed Not Available Not Available Not Available dicyclomine 20 mg tablet TAKE 1 TABLET BY MOUTH 4 TIMES DAILY 10/10 completed Not Available Not Available Not Available Kenalog 10 mg/mL suspension for injection In office injection administe red by the provider 10/10 completed [facility]: [phone]- [phone] Not Available Not Available Not Available phenazopyri dine 100 mg tablet 10/09 completed Not Available Not Available Not Available benzonatate 100 mg capsule TAKE 1 CAPSULE BY MOUTH THREE TIMES DAILY NEEDED FOR 10 DAYS 10/10 completed Not Available Not Available Not Available doxycycline monohydrate 100 mg capsule 10/09 completed Not Available Not Available Not Available cephalexin 500 mg capsule TAKE 1 CAPSULE BY MOUTH TWICE DAILY FOR 7 DAYS active Not Available Not Available No t Available pantoprazol e 40 mg tablet,arlyn yed release TAKE 1 TABLET BY MOUTH ONCE DAILY DIRECTED FOR 30 DAYS 07/15 completed Not Available Not Available Not Available hyoscyamine sulfate 0.125 mg tablet active Not Available Not Available Not Available nortriptyli ne 10 mg capsule active Not Available Not Available Not Available ferrous sulfate 325 mg (65 mg iron) tablet TAKE 1 TABLET BY MOUTH ONCE DAILY active Not Available Not Available No t Available nitrofurant oin macrocrysta l 100 mg capsule TAKE 1 CAPSULE BY MOUTH TWICE DAILY active Not Available Not Available No t Available ranitidine 150 mg tablet 10/09 completed Not Available Not Available Not Available Gentle Laxative (bisacodyl) 5 mg tablet,arlyn yed release 10/10 completed Not Available Not Available Not Available lidocaine 5 % topical patch APPLY 1 TOPICALLY ONCE DAILY UP TO 12 HOURS NEEDED active Not Available Not Available No t Available nicotine 21 mg/24 hr daily transdermal patch APPLY 1 PATCH TOPICALLY ONCE DAILY DIRECTED FOR 14 DAYS active Not Available Not Available No t Available omeprazole 20 mg capsule,del ayed release TAKE 1 CAPSULE BY MOUTH ONCE DAILY FOR A MONTH active Not Available Not Available No t Available diclofenac sodium 75 mg tablet,arlyn yed release Take 1 tablet twice a day by oral route. active Not Available Not Available No t Available amoxicillin 250 mg capsule 10/09 completed Not Available Not Available Not Available montelukast 10 mg tablet TAKE 1 TABLET BY MOUTH ONCE DAILY 10/10 completed Not Available Not Available Not Available mirtazapine 15 mg tablet TAKE 1 TABLET BY MOUTH ONCE DAILY active Not Available Not Available No t Available gabapentin 100 mg capsule TAKE 1 CAPSULE BY MOUTH THREE TIMES DAILY DIRECTED 07/15 completed Not Available Not Available Not Available metoprolol succinate ER 25 mg tablet,exte nded release 24 hr 10/09 completed Not Available Not Available Not Available ibuprofen 600 mg tablet TAKE 1 TABLET BY MOUTH EVERY 6 HOURS NEEDED WITH FOOD 10/10 completed Not Available Not Available Not Available levofloxaci n 500 mg tablet 10/09 completed Not Available Not Available Not Available methylpredn isolone 4 mg tablets in a dose pack TAKE DIRECTED active Not Available Not Available No t Available ferrous sulfate 325 mg (65 mg iron) tablet,arlyn yed release 10/09 completed Not Available Not Available Not Available ondansetron 4 mg disintegrat ing tablet DISSOLVE 1 TABLET ON THE TONGUE EVERY 8 HOURS NEEDED FOR NAUSEA OR VOMITING 12/05 completed Not Available Not Available Not Available cefdinir 300 mg capsule TAKE 1 CAPSULE BY MOUTH EVERY 12 HOURS DIRECTED FOR 10 DAYS 10/10 completed Not Available Not Available Not Available fluticasone propionate 50 mcg/actuati on nasal spray,suspe nsion USE 1 SPRAY(S) IN EACH NOSTRIL ONCE DAILY 10/10 completed Not Available Not Available Not Available dicyclomine 10 mg capsule 10/09 completed Not Available Not Available Not Available loratadine 10 mg tablet TAKE 1 TABLET BY MOUTH ONCE DAILY IN THE MORNING FOR 30 DAYS active Not Available Not Available No t Available naproxen 500 mg tablet 10/10 completed Not Available Not Available Not Available amoxicillin 875 mg-potassiu m clavulanate 125 mg tablet TAKE 1 TABLET BY MOUTH TWICE DAILY WITH FOOD 10/10 completed Not Available Not Available Not Available Vitamin B-12 1,000 mcg tablet 10/09 completed Not Available Not Available Not Available nicotine 7 mg/24 hr daily transdermal patch APPLY 1 PATCH TOPICALLY ONCE DAILY DIRECTED FOR 14 DAYS active Not Available Not Available No t Available Ventolin HFA 90 mcg/actuati on aerosol inhaler Inhale 1 puff 3 times a day by inhalatio n route. 2020 active Not Available Not Available Not Avai lable neomycin-po lymyxin-hyd rocort 3.5 mg-10,000 unit/mL-1 % ear drops,susp 10/09 completed Not Available Not Available Not Available escitalopra m 10 mg tablet TAKE 1 TABLET BY MOUTH ONCE DAILY active Not Available Not Available No t Available 03/20 (21) 1 mg-20 mcg tablet 10/09 completed Not Available Not Available Not Available Pain Reliever (acetaminop hen) 500 mg tablet 10/10 completed Not Available Not Available Not Available escitalopra m 5 mg tablet TAKE 1 TABLET BY MOUTH ONCE DAILY active Not Available Not Available No t Available mirtazapine 7.5 mg tablet TAKE 1 TABLET BY MOUTH ONCE DAILY active Not Available Not Available No t Available nitrofurant oin monohydrate /macrocryst als 100 mg capsule TAKE 1 CAPSULE BY MOUTH EVERY 12 HOURS FOR 5 DAYS WITH FOOD active Not Available Not Available No t Available lactulose 10 gram/15 mL oral solution 10/09 completed Not Available Not Available Not Available pregabalin 75 mg capsule TAKE 1 CAPSULE BY MOUTH TWICE DAILY active Not Available Not Available No t Available lidocaine (PF) 10 mg/mL (1 %) injection solution In office injection administe red by the provider 10/10 completed [facility]: 0409- [phone]- [phone] Not Available Not Available Not Available Jolessa 0.15 mg-30 mcg (91) tablets,3 month dose pack 10/09 completed Not Available Not Available Not Available Danielle (28) 90 mcg-20 mcg tablet TAKE 1 TABLET BY MOUTH ONCE DAILY 10/10 completed Not Available Not Available Not Available [place] 0.25 mg-0.035 mg tablet 10/09 completed Not Available Not Available Not Available Daysee 0.15 mg-30 mcg (84)/10 mcg(7) tablets,3 month dose pack 10/09 completed Not Available Not Available Not Available Xulane 150 mcg-35 mcg/24 hr transdermal patch APPLY 1 PATCH TOPICALLY ONCE A WEEK 10/10 completed Not Available Not Available Not Available Fluarix Quad 2582-0213 (PF) 60 mcg (15 mcg x 4)/0.5 mL IM syringe 10/09 completed Not Available Not Available Not Available Fluzone Quad (PF) 60 mcg (15 mcg x 4)/0.5 mL IM syringe active Not Available Not Available N ot Available Vitals Date Recorded Body height Provider Name an d Address Organization Details Last Updated DateTime 07/15/2021 154.94 cm Not Available [facility] 3 18:17:46 Date Recorded Body mass index (BMI) Body height Body weight Provider Name and Address Organization Details Last Updated DateTime 10/24/2020 16.1 kg/m2 154.94 cm 66678.35 g Not Available [facility] 04/29/2022 18:17:47 Date Recorded Body height Body mass index (BMI) Body weight Oxygen saturation Oxygen saturation in Arterial blood by Pulse oximetry Heart rate Body temperature Provider Name and Address Organization Details Last Updated DateTime 4 154.94 cm 16.6 kg/m2 08500.1 3 g 98 % 98 % 80 /min 98.4 [degF] SANTA Silva [facility] [employer] 4 14:18:49 Date Recorded Body mass index (BMI) Body height Oxygen saturation Oxygen saturation in Arterial blood by Pulse oximetry Heart rate Body temperature Body weight Systolic blood pressure Diastolic blood pressure Provider Name and Address Organization Details Last Updated DateTime 1 16.2 kg/m2 154.94 cm 97 % 97 % 58 /min 98.4 [degF] 27970.9 4 g 131 mm[Hg] 96 mm[Hg] Not Available [facility] 3 18:17:46 Date Recorded Oxygen saturation Oxygen saturation in Arterial blood by Pulse oximetry Heart rate Respiratory rate Systolic blood pressure Diastolic blood pressure Provider Name and Address Organization Details Last Updated DateTime 4 99 % 99 % 70 /min 18 /min 134 mm[Hg] 84 mm[Hg] Jabier Summers RN [facility] [employer] 4 12:42:26 Social History Question Answer Notes LastModified by Organizat ion Details LastModified Time Tobacco Smoking Status Current Every Day Smoker Not Available [facility] 04/29/2022 18:17:41 Do You Have An Advance Directive? Yes [id number] Information not available 04/29/2022 In The 14 Days Before Symptom Onset, Have You Had Close Contact With A Laboratory-confirm ed COVID-19 While That Case Was Ill? No [id number] Information not available 04/29/2022 In The 14 Days Before Symptom Onset, Have You Had Close Contact With A Person Who Is Under Investigation For COVID-19 While That Person Was Ill? No [id number] Information not available 04/29/2022 What Is The Highest Grade Or Level Of School You Have Completed Or The Highest Degree You Have Received? [id number] [id number] Information not available 04/29/2022 What Was The Date Of Your Most Recent Tobacco Screening? 11/19/2020 [id number] Information not available 04/29/2022 What Is Your Relationship Status? [id number] Information not available 04/29/2022 Do You Use Your Seat Belt Or Car Seat Routinely? Yes [id number] Information not available 04/29/2022 Do You Have Smoke And Carbon Monoxide Detectors In Your Home? Yes [id number] Information not available 04/29/2022 At What Age Did You Start Smoking Tobacco? 13 [id number] Information not available 04/29/2022 Are You Passively Exposed To Smoke? No [id number] Information not available 04/29/2022 How Much Tobacco Do You Smoke? 0.5 PPD [id number] Information not available 04/29/2022 Has Tobacco Cessation Counseling Been Provided? No [id number] Information not available 04/29/2022 How Many Years Have You Smoked Tobacco? 23 [id number] Information not available 04/29/2022 Have You Recently Traveled Abroad? No [id number] Information not available 04/29/2022 Sex: Unknown Functional Status Question Answer Note LastModified by Organizat ion Details LastModified Time Do you or have you ever used any other forms of tobacco or nicotine? No [id number] Information not available 04/29/2022 What is your level of alcohol consumption? 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 Family History Relationship Description Onset Age of this Age Resolved Age Notes LastModified by Organization Details LastModified Time Father Hypertensive disorder [id number] Not available 04/29/2022 18:17:43 Father Bipolar disorder [id number] Not available 04/29/2022 18:17:43 Father Harmful pattern of use of alcohol [id number] Not available 04/29/2022 18:17:43 Unspecified Relation History of attempted suicide nephew [id number] Not available 04/29/2022 18:17:43 Daughter Asthma [id number] Not available 04/29/2022 18:17:43 Father Family history of stroke Not available 2023 12:44:45 Father Type 2 diabetes mellitus [id number] Not available 2023 12:47:51 Medical History Condition Response CYSTITIS N BLINDNESS N RHEUMATIC FEVER N KIDNEY STONES Y BLADDER PROBLEMS N Enlarged Prostate N MRSA N SLEEP APNEA N INFECTIOUS DISEASE N LUNG DISEASE/DISORDER N HEART ARRHYTHMIA N PROSTATE N HISTORY OF DRUG ABUSE N INSOMNIA N COPD N RADIATION / CHEMOTHERAPY N HIGH CHOLESTEROL / HYPERLIPIDEMIA Y HYPERTHYROIDISM N UTI N BLOOD DISEASES N EDEMA N HYPOTHYROIDISM N SHINGLES N BOWEL PROBLEMS N BACK / NECK PROBLEMS Y DEPRESSION (INCLUDING POST ) N HAVE YOU BEEN HOSPITALIZED OR SEEN IN [facility] IN THE PAST YEAR ? N STROKE/TIA N THYROID DISEASE N BENIGN PROSTATIC HYPERPLASIA N DIALYSIS N OBESITY N GERD/NAUSEA Y ANEURYSM N OSTEOPOROSIS N URINARY/BLADDER/KIDNEY PROBLEMS N Increased Urination N CORONARY ARTERY DISEASE (CAD) N ARTHRITIS N USE OF BLOOD THINNERS N NO SIGNIFICANT PAST MEDICAL HISTORY N DIABETES, TYPE N EMPHYSEMA N GASTROINTESTINAL DISORDER Y PARKINSON N GASTROINTESTINAL BLEEDING N BLOOD CLOTS N Difficulty Urinating N ASTHMA N HEPATITIS / LIVER DISEASE N CATARACTS N GOUT N SLEEP DISORDER N ALZHEIMER'S DISEASE N ERECTILE DYSFUNCTION N HERPES N SEIZURES/EPILEPSY N HEADACHES/MIGRAINES N GI PROBLEMS N Low Testosterone N PACEMAKER N HEART MURMUR N DIZZINESS N AIDS/HIV N KIDNEY DISEASE N HEART DISEASE/HEART PROBLEMS N LIVER DISEASE N MULTIPLE SCLEROSIS N MALE HYPOGONADISM N HYPERTENSION Y CANCER: SPECIFY Y TOURETTE'S N ANXIETY DISORDER Y BLOOD TRANSFUSION N ANEMIA/BLOOD DISORDER N ANESTHESIA COMPLICATIONS N ATRIAL FIBRILLATION N AUTOIMMUNE DISEASE N TUBERCULOSIS N GLAUCOMA N Gynecological HistoryNo gynecological history recorded. Obstetrics History GPAL:G 0 P 0 0 0 0 Past Encounters Encounter ID Performer Location Encounter Start Date Encounter Closed Date Diagnosis/Indication Diagnosis SNOMED-CT Code Diagnosis ICD10 Code Diagnosis Note [id number] Kristopher Loyd MD [facility] [address] [address] 10/10/2020 00:00:00 10/10/2020 11:34:28 [id number] Kristopher Loyd MD [facility] [address] [place] [address] 10/24/2020 00:00:00 10/24/2020 12:52:01 [id number] Kristopher Loyd MD [facility] [address] [address] 12/05/2020 00:00:00 12/05/2020 09:35:49 [id number] Robyn Rogers MD [facility] [address] [place] [address] 07/15/2021 00:00:00 07/15/2021 11:01:36 [id number] Yimi Morfin DPM [facility] [address] [address] 12/02/2023 13:57:46 12/03/2023 09:53:28 Vasculitis 45088445 M31.8 [id number] [facility] [address] [place] [address] 12/13/2023 11:49:28 12/13/2023 13:37:57 Raynaud's disease [id number] I73.00 Health Concerns Section Related Observation LastModified by Organization Detai ls LastModified Time None Recorded Concern Status LastModified by Organization Details LastModified Time None Recorded Advance Directives Directive Y: Payers Encounter Date Sequence Insurance Name Policy Number Policy Alvarez Covered Member ID Alvarez Member ID Guarantor Name 12/02/2023 1 [facility] ON OR AFTER 08/29/20 (MEDICAID REPLACEMENT - HMO) Cyndi Delgadillo [id number] Cyndi Delgadillo 12/13/2023 1 [facility] ON OR AFTER 08/29/20 (MEDICAID REPLACEMENT - HMO) Cyndi Delgadillo [id number] Cyndi Delgadillo Notes Date Note Type Note Provider Name and Address Organization Details Recorded Time 07/15/2021 text/html KneeReported bypatient.Location:r ight; medial Quality:sharp; deep; occasional Severity:moderate Duration:continuous since onset Timing:acute; abrupt Context:cannot identify Alleviating Factors:lying down; elevation; exercise; stretching Aggravating Factors:walking; lifting; carrying; twisting; bending/squatting Associated Symptoms:swelling;po pping/clicking;buckl ing Not Available [facility] 07/15/2021 11:01:36 12/02/2023 text/html Pain and redness , both feet, worse during WB and intermittently Yimi Morfin DPM [address], [place], [address], [facility] 12/03/2023 09:14:21 12/13/2023 text/html Patient is a 38 year old female that presents to the clinic with redness and pain bilaterally of the LE. She complains her legs turn red and are painful. Patient has been experiencing the pain and redness for a few months. Labs were already collected. Patient currently denies sob, cp, n/v/d, fever, or chills. Cait Smith PA-C [address], [place], [address], [facility] 05/11/2024 12:13:56 OBGyn Episode No OBEpisode recorded.
--- OUTSIDE RECORDS SUMMARY | 2024-07-27 10:17 | XMS_ITS | Clinical Summary ---
Author Organization [facility] Address [facility] [place] [address] Care Team Providers Care Footwear Factory Worker Name Role Phone Tre Willard MD Unavailable [phone] Mari Cabral MD Unavailable Nelly Pike Primary Care Provider [phone] Anaya Jiang NP Unavailable [phone] Allergies Active Allergy Reactions Criticality Noted Date Comments Cephalexin Rash High 07/01/2018 Ibuprofen Stomach upset Low 03/21/2021 Penicillin Rash,Redness Medium 11/07/2021 Tramadol Itching Low 01/01/2017 Venom-Wasp Other (See comments) Medium 03/21/2021 Medications ferrous sulfate 325 mg (65 mg of elemental iron) tabletIndications: Iron Deficiency Anemia Take 325 mg by mouth white metal caster before breakfast 7 Active lovastatin (MEVACOR) 40 mg tabletIndications: mixed hyperlipidemia Take 40 mg by mouth nightly Active atenoloL-chlorthal idone (TENORETIC) 100-25 mg per tabletIndications: hypertension,heart Take 1 tablet by mouth white metal caster before breakfast Active estradioL (ESTRACE) 1 mg tablet Take 0.5 mg by mouth white metal caster before breakfast 1 Active Ventolin HFA 90 mcg/actuation inhaler Inhale 1 puff every 4 (four) hours as needed for shortness of breath or wheezing 1 Active traZODone (DESYREL) 50 mg tablet Take 50 mg by mouth nightly Active lidocaine (LIDODERM) 5 %Indications:Posth erpetic Neuralgia Place 1 patch on the skin as needed Active fluticasone propionate (FLONASE) 50 mcg/actuation nasal sprayIndications:C hronic Non-Allergic Rhinitis Administer 1 spray into each nostril as needed 0 Active amitriptyline (ELAVIL) 10 mg tablet 2 Active acetaminophen (TYLENOL) 500 mg tablet Take 2 tablets (1,000 mg total) by mouth every 6 (six) hours 60 tablet 2 Active cetirizine (ZyrTEC) 10 mg tablet 2 Active UNKNOWN TO PATIENT Headache medication Active metoprolol XL (TOPROL-XL) 50 mg extended release tablet Take 50 mg by mouth daily 2 Active magnesium oxide (MAG-OX) 400 mg (241.3 mg elemental magnesium) tablet Take 1 tablet by mouth 2 (two) times a day 2 Active Active Problems Problem Noted Date Diagnosed Date Chronic compartment syndrome of lower extremity 04/06/2022 Overview (04/06/2022): Added automatically from request for surgery [id number] Compression of common perone al nerve of left lower extremity 11/05/2021 Compression of common perone al nerve of right lower extremity 10/30/2021 Overview (10/30/2021): Added automatically from request for surgery [id number] SVT (supraventricular tachycardia) 12/29/2016 Assessment & Plan (03/22/2017 12:29 PM SECTION SUPERVISOR): 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 She describes 1 episode of palpitations lasting a few seconds. She is not taking metoprolol, and I see no reason to resume this unless she has more frequent palpitations. Should she have sustained episodes, a repeat monitor should be obtained. At this point, I see no evidence of recurrence. She does have cutaneous numbness of the right groin just medial to the access site. She has no evidence of vascular complication, with normal distal pulses, no hematoma, and no bruit. This is likely just superficial nerve damage that will need time to recover. I have not scheduled a follow-up visit for her. At this point, we no longer a except her insurance. Should she have recurrence in the future I am happy to see her again, although her current insurance may preclude this. I am also happy to refer her to a colleague if possible, should the need arise. Assessment & Plan (01/05/2017 1:52 PM SECTION SUPERVISOR): She has had brief episodes of palpitations for several years, and now 1 sustained episode of narrow complex tachycardia at greater than 200 beats per minute. She had a structurally normal heart on echocardiogram about 1 year ago. She is otherwise healthy, and reports side effects secondary to metoprolol. She also has significant anxiety that another supraventricular tachycardia episode will occur. We discussed options for management today, including expected management, continued medical therapy with metoprolol, or EP study with ablation. I reviewed the risks (bleeding, damage to surrounding structures, cardiac perforation, need for additional procedures, cardiac pacemaker placement, recurrence, anesthesia complication), expected success rate of about 95%, and alternatives. She would like to proceed as soon as possible. She wants to continue taking metoprolol until that time, so I have renewed her prescription. We did review vagal maneuvers which she can try if she has another episode of sustained tachycardia. Of note, she does have a short AR interval but her EKG does not appear to have a delta wave. We did discuss the possibility of an accessory pathway as a possible etiology for her tachycardia, although it was not a wide complex tachycardia. Surgical History Surgery Date Site/Laterality Comments TUBAL LIGATION CERVICAL BIOPSY W/ LOOP ELECTRODE EXCISION ABLATION 03/01/2019 - 02/29/2020 SVT ablation x 2 Medical History Medical History Date Comments History of supraventricular tachycardia s/p ablation X 2 in 2019 Smoker Hypertension Wheezing Family History Medical History Relation Name Comments Bipolar disorder Father Hypertension Father Anesthesia problems Neg Hx Relation Name Status Comments Father Alive Mother Alive Social History Tobacco Use Types Packs/Day Years Used Date Smoking Tobacco: Every Day Cigarettes Smokeless Tobacco: Never Tobacco Cessation:Ready to Q uit: Not Asked; Counseling Given: Not Answered Alcohol Use Standard Drinks/Week Comments Yes 0 (1 standard drink = 0.6 oz pur e alcohol) occasional AUDIT-C Answer Date Recorded Q1: How often do you have a drink containing alcohol? Never 04/08/2022 Q2: How many drinks containi ng alcohol do you have on a typical day when you are drinking? Patient does not drink Q3: How often do you have si x or more drinks on one occasion? Never 04/08/2022 Comments No Sex and Gender Information Value Date Recorded Sex Assigned at Not on file Legal Sex Female 11:13 AM CDT Gender Identity Female 06/22/2021 9:26 AM CDT Sexual Orientation Not on file Obstetrics History Last Filed Vital Signs Vital Sign Reading Time Taken Comments Blood Pressure 123/69 04/08/2022 9:50 AM SECTION SUPERVISOR Pulse 54 04/08/2022 9:50 AM SECTION SUPERVISOR Temperature 36.8 C (98.2 F) 04/08/2022 9:30 AM SECTION SUPERVISOR Respiratory Rate 10 04/08/2022 9:50 AM SECTION SUPERVISOR Oxygen Saturation 100% 04/08/2022 9:50 AM SECTION SUPERVISOR Inhaled Oxygen Concentration - - Weight 41.7 kg (92 lb) 04/08/2022 6:38 AM SECTION SUPERVISOR Height 154.9 cm (5' 1) 04/08/2022 6:38 AM SECTION SUPERVISOR Body Mass Index 17.38 04/08/2022 6:38 AM SECTION SUPERVISOR Plan of Treatment Health Maintenance Due Date Last Done Comments Depression Screening 1985 Hepatitis C Screening 1985 Varicella Vaccines (1 of 2 - 13+ 2-dose series) 1998 DTaP/Tdap/Td Vaccine (5 - Tdap) 12/03/1998 12/02/1998, 04/13/1991, 10/01/1986, Additional history exists Regular Well Visit/Exam 18-64 11/18/2003 Pneumococcal vaccine <65 (1 of 2 - PCV) 2004 Covid-19 Vaccine ( season) 2023 02/18/2021, 08/15/2020, 07/18/2020 Influenza Vaccine (Season Ended) 2024 12/11/2019, 12/07/2018, 12/15/2017, Additional history exists Hepatitis B Screening Completed 12/02/1998, 999 HPV Vaccines Aged Out No longer eligi ble based on patient's age to complete this topic Medical Devices Implanted Type Area Acquisition Professional Device Identifier Shelf Expiration Date Model / Serial / Lot Peek@U Seprafilm 6x5in Barrier Adhesion Sterile Disposable Latex Free [id number] - [id number] Implanted:Qty : 1 on 11/05/2021 by Aleyda Saba MD at [facility] Other - see comments Right: Leg Peek@U [id number] 12/26/2023 [id number] / / [id number] Insurance [facility] Care Teams Footwear Factory Worker Relationship Specialty Start Date End Date Nelly Pike PA [address] [place] [id number] PCP - General Physician Office Support 06/17/20 Tre Willard MD [address] [address] Consulting Physician Cardiology 12/31/16 Mari Cabral MD [address] [place] [address] Consulting Physician Electrophysiology 12/31/16 Anaya Jiang NP [address] [place] [address] Nurse Practitioner Family Practice 10/29/21
--- OUTSIDE RECORDS SUMMARY | 2024-07-27 10:17 | XMS_ITS | Data Portability ---
Author Organization [facility] Address [address] [place] [address] [place] [address] Assessment No assessment recorded. Plan of Treatment Reminders Order Date Submit Date Provider Last Modified By Organization Details Last Modified Time Details Appointments None recorded. Lab None recorded. Referral None recorded. Procedures None recorded. Surgeries None recorded. Imaging US, pelvis 2020 [email or web address] [facility], [address], [place], [address], 20:11:51 Medication Orders hydrocodon e 5 mg-acetami nophen 325 mg tablet 2020 021 [facility] 176, [address] [place] [address], [id number], 17:02:21 hydrocodon e 5 mg-acetami nophen 325 mg tablet 2020 021 [facility] 1761, [address] [place] [address], [id number], 16:01:52 estradiol 1 mg tablet 2020 021 [facility] [address], [address] [place] [address], [address], 18:19:52 Patient TargetsNo targets recorded. Patient InstructionsNo instructions recorded. Reason for Referral None Reported. Results Created Date Observation Date Name Description Value Unit Range Abnormal Flag Note LastModifiedBy Organization Detail LastModifiedTime 09/27/19 21 09/26/2020 URINA LYSIS , WITH MICRO SCOPI C color, urine Yellow colorl ess, light yellow , yellow , dark yellow , straw Not Available [facility] (Lab) [address], [place], [address], 09/28/2020 07:12:23 09/27/19 21 09/26/2020 URINA LYSIS , WITH MICRO SCOPI C clarity, urine Clear Not Available [facility] (Lab) [address], [place], [address], 09/28/2020 07:12:23 09/27/19 21 09/26/2020 URINA LYSIS , WITH MICRO SCOPI C glucose, urine Negati ve mg/dL negati ve Not Available [facility] (Lab) [address], [place], [address], 09/28/2020 07:12:23 09/27/19 21 09/26/2020 URINA LYSIS , WITH MICRO SCOPI C bilirubin, urine Negati ve mg/dL negati ve Not Available [facility] (Lab) [address], [place], [address], 09/28/2020 07:12:23 09/27/19 21 09/26/2020 URINA LYSIS , WITH MICRO SCOPI C ketones, urine Negati ve mg/dL negati ve Not Available [facility] (Lab) [address], [place], [address], 09/28/2020 07:12:23 09/27/19 21 09/26/2020 URINA LYSIS , WITH MICRO SCOPI C pH, urine 7.0 . 5.0-9. 0 Not Available [facility] (Lab) [address], [place], [address], 09/28/2020 07:12:23 09/27/19 21 09/26/2020 URINA LYSIS , WITH MICRO SCOPI C specific gravity, urine 1.014 . 1.001- 1.035 Not Available [facility] (Lab) [address], [place], [address], 09/28/2020 07:12:23 09/27/19 21 09/26/2020 URINA LYSIS , WITH MICRO SCOPI C blood, urine Negati ve negati ve Not Available [facility] (Lab) [address], [place], [address], 09/28/2020 07:12:23 09/27/19 21 09/26/2020 URINA LYSIS , WITH MICRO SCOPI C protein, urine Negati ve mg/dL negati ve Not Available [facility] (Lab) [address], [place], [address], 09/28/2020 07:12:23 09/27/19 21 09/26/2020 URINA LYSIS , WITH MICRO SCOPI C urobilinogen , urine <2.0 mg/dL <2.0 Not Available [facility] (Lab) [address], [place], [address], 09/28/2020 07:12:23 09/27/19 21 09/26/2020 URINA LYSIS , WITH MICRO SCOPI C nitrite, urine Negati ve negati ve Not Available [facility] (Lab) [address] [facility], [place], [address], 09/28/2020 07:12:23 09/27/19 21 09/26/2020 URINA LYSIS , WITH MICRO SCOPI C leukocyte esterase, urine Negati ve negati ve Not Available [facility] (Lab) [address] [facility], [place], [address], 09/28/2020 07:12:23 09/27/19 21 09/26/2020 URINA LYSIS , WITH MICRO SCOPI C WBC, urine 0-5 /hpf none, 0-5 Not Available [facility] (Lab) [address], [place], [address], 09/28/2020 07:12:23 09/27/19 21 09/26/2020 URINA LYSIS , WITH MICRO SCOPI C RBC, urine 0-2 /hpf none, 0-2 Not Available [facility] (Lab) [address] [facility], [place], [address], 09/28/2020 07:12:23 09/27/19 21 09/26/2020 URINA LYSIS , WITH MICRO SCOPI C bacteria, urine Trace /hpf none abnormal Not Available [facility] (Lab) [address] [facility], [place], [address], 09/28/2020 07:12:23 09/27/19 21 09/26/2020 URINA LYSIS , WITH MICRO SCOPI C squamous epithelial cells, urine Modera te /hpf none abnormal Not Available [facility] (Lab) [address] [facility], [place], [address], 09/28/2020 07:12:23 09/27/19 21 09/26/2020 URINA LYSIS , WITH MICRO SCOPI C mucus, urine Modera te /hpf none, trace, few abnormal Not Available [facility] (Lab) [address] [facility], [place], [address], 09/28/2020 07:12:23 09/27/19 21 09/26/2020 CULTU RE: URINE result report SEE RESULT S BELOW Test: Cultu re: Urine Speci men Sourc e: Urine Voide d Speci men Type: Urine Speci men Date: 2020 4:46 PM Resul t Date: 2020 6:08 AM Resul t Statu s: Final resul t Abnor mal: No Resul ting Lab: [facility] [address] [facility] [address] Tel: CULTU RE ----- ----- ----- --- No growt h in 1 day (dete ction level of 10,00 0 colon ies / ml.) Not Available [facility] (Lab) [address] [facility], [place], [address], 09/28/2020 07:12:24 06/28/19 21 06/27/2020 US, pelvi s No observ ation record ed. [facility] [address], [place], [address], 06/27/2020 17:10:04 06/28/19 21 06/27/2020 US, pelvi s No observ ation record ed. [facility] [address], [place], [address], 06/27/2020 21:45:36 09/25/19 21 09/24/2020 CT, abdom en + pelvi s, w/ contr ast No observ ation record ed. [facility] [address], [place], [address], 09/26/2020 13:13:01 Result Notes None recorded. Procedures Surgical History Date Name Laterality Status Provider Name and Address Organization Details Recorded Time 04/24/19 21 SALPINGO-OOPHORE CTOMY, LAPAROSCOPIC (SURG) completed Giselle Munoz [facility] 05/10/2020 14:42:21 04/24/19 21 SALPINGO-OOPHORE CTOMY, LAPAROSCOPIC (SURG) completed Radha Allan [facility] 05/20/2020 09:32:25 05/19/19 17 LEEP completed Latoya Nguyen [facility] 04/01/2020 10:40:25 LEEP completed Latoya Nguyen [facility] 06/27/2020 15:57:54 Partial Hysterectomy completed Nelly Choe [facility] 02/28/2020 11:55:35 Imaging Results None recorded. Procedure Notes None recorded. Medical Equipment None Reported. Allergies Allergen ID Allergen Name Allergen Category Reaction Reaction Severity Criticality Documentation Date Start Date Code Code System Note Provider Name and Address Organization Details Recorded Time 71715 tramadol medicatio n Not available Not available Not available 02/28/2020 00373 RxNorm Nelly Choe [facility], [facility] 0 11:53:18 Medications Name Sig Start Date Stop Date Status Note LastModified by Organization Details LastModified Time celecoxib 200 mg capsule TAKE 400 MG LOADING DOSE 1 TIME AND THEN MAY TAKE 200 MG TWICE DAILY FOR MAX OF 7 DAYS 06/06 completed Not Available Not Available Not Available cyclobenzap rine 10 mg tablet TAKE 1 TABLET BY MOUTH THREE TIMES DAILY NEEDED FOR MUSCLE SPASM MAY CAUSE DROWSINES S active Not Available Not Available No t Available fluconazole 100 mg tablet TAKE 2 TABS BY MOUTH ON DAY 1 AND THEN TAKE 1 TAB DAILY ON DAYS 2 7 active Not Available Not Available No t Available atenolol 100 mg-chlortha lidone 25 mg tablet TAKE 1 TABLET BY MOUTH ONCE DAILY active Not Available Not Available No t Available polyethylen e glycol 3350 17 gram oral powder packet DISSOLVE 1 PACKET IN 8 OUNCES OF FLUID AND DRINK BY MOUTH ONCE DAILY 02/27 completed Not Available Not Available Not Available cetirizine 10 mg tablet TAKE 1 TABLET BY MOUTH ONCE DAILY active Not Available Not Available No t Available azithromyci n 250 mg tablet TAKE 2 TABLETS BY MOUTH ON DAY 1 AND THEN TAKE 1 TABLET BY MOUTH ONCE A DAY ON DAY 2 THROUGH DAY 5 02/27 completed Not Available Not Available Not Available ibuprofen 800 mg tablet TAKE 1 TABLET BY MOUTH EVERY 8 HOURS NEEDED FOR PAIN 02/27 completed Not Available Not Available Not Available Lidocaine Viscous 2 % mucosal solution SWISH AND SPIT OUT 5 ML EVERY 6 HOURS MAY USE UP TO 4 TIMES DAILY FOR TOOTH PAIN DO NOT SWALLOW active Not Available Not Available No t Available benzonatate 200 mg capsule TAKE 1 CAPSULE BY MOUTH THREE TIMES DAILY active Not Available Not Available No t Available metoprolol succinate ER 50 mg tablet,exte nded release 24 hr TAKE 1 TABLET BY MOUTH ONCE DAILY IN THE MORNING active Not Available Not Available No t Available hydrocodone 5 mg-acetamin ophen 325 mg tablet TAKE 1 TABLET BY MOUTH EVERY 6 HOURS active Not Available Not Available No t Available sucralfate 1 gram tablet TAKE 1 TABLET BY MOUTH THREE TIMES DAILY BEFORE MEAL(S) AND 1 TAB AT BEDTIME 06/06 completed Not Available Not Available Not Available phenazopyri dine 200 mg tablet TAKE 1 TABLET BY MOUTH EVERY 8 HOURS NEEDED FOR PAINFUL URINATION 02/27 completed Not Available Not Available Not Available lovastatin 40 mg tablet TAKE 1 TABLET BY MOUTH ONCE DAILY active Not Available Not Available No t Available topiramate 25 mg tablet TAKE 2 TABLETS BY MOUTH ONCE DAILY AT BEDTIME 06/06 completed Not Available Not Available Not Available potassium chloride ER 10 mEq tablet,exte nded release active Not Available Not Available Not Available acetaminoph en 300 mg-codeine 30 mg tablet Take 1 tablet every 6 hours by oral route. 06/06 completed Not Available Not Available Not Available nortriptyli ne 25 mg capsule TAKE 1 TABLET BY MOUTH AT BEDTIME FOR 1 WEEK AND THEN INCREASE TO 2 TABS AT BEDTIME active Not Available Not Available No t Available cyproheptad ine 4 mg tablet active Not Available Not Available Not Available oxycodone-a cetaminophe n 5 mg-325 mg tablet TAKE 1 TABLET BY MOUTH EVERY 6 HOURS 06/06 completed Not Available Not Available Not Available amitriptyli ne 25 mg tablet TAKE 1 TABLET BY MOUTH ONCE DAILY AT BEDTIME 06/06 completed Not Available Not Available Not Available magnesium oxide 400 mg (241.3 mg magnesium) tablet TAKE 1 TABLET BY MOUTH TWICE DAILY active Not Available Not Available No t Available estradiol 1 mg tablet Take 1 tablet by mouth once daily (must keep appointme nt or no more refills ) 2024 active Not Available Not Available Not Avai lable triamcinolo ne acetonide 0.1 % dental paste APPLY 1 SMALL APPLICATI ON AT NIGHT BEFORE BED. APPLY 3 TIMES DAILY AFTER MEALS IF SEVERE active Not Available Not Available No t Available dicyclomine 20 mg tablet TAKE 1 TABLET BY MOUTH 4 TIMES DAILY active Not Available Not Available No t Available benzonatate 100 mg capsule TAKE 1 CAPSULE BY MOUTH THREE TIMES DAILY NEEDED FOR 10 DAYS 02/27 completed Not Available Not Available Not Available cephalexin 500 mg capsule TAKE 1 CAPSULE BY MOUTH TWICE DAILY FOR 7 DAYS active Not Available Not Available No t Available pantoprazol e 40 mg tablet,arlyn yed release TAKE 1 TABLET BY MOUTH ONCE DAILY FOR 30 DAYS active Not Available Not Available No t Available nortriptyli ne 10 mg capsule TAKE 1 CAPSULE BY MOUTH ONCE DAILY AT BEDTIME FOR 30 DAYS 02/27 completed Not Available Not Available Not Available Gentle Laxative (bisacodyl) 5 mg tablet,arlyn yed release TAKE 2 TABLETS BY MOUTH ONCE DAILY 02/27 completed Not Available Not Available Not Available omeprazole 20 mg capsule,del ayed release TAKE 1 CAPSULE BY MOUTH ONCE DAILY FOR 30 DAYS 02/27 completed Not Available Not Available Not Available diclofenac sodium 75 mg tablet,arlyn yed release active Not Available Not Available Not Available amoxicillin 250 mg capsule TAKE 2 CAPSULES BY MOUTH TWICE DAILY 02/27 completed Not Available Not Available Not Available montelukast 10 mg tablet TAKE 1 TABLET BY MOUTH ONCE DAILY 06/06 completed Not Available Not Available Not Available gabapentin 100 mg capsule active Not Available Not Available Not Available ibuprofen 600 mg tablet TAKE 1 TABLET BY MOUTH EVERY 6 HOURS NEEDED WITH FOOD active Not Available Not Available No t Available methylpredn isolone 4 mg tablets in a dose pack TAKE DIRECTED active Not Available Not Available No t Available ondansetron 4 mg disintegrat ing tablet DISSOLVE 1 TABLET ON THE TONGUE EVERY 8 HOURS NEEDED FOR NAUSEA OR VOMITING active Not Available Not Available No t Available cefdinir 300 mg capsule TAKE 1 CAPSULE BY MOUTH EVERY 12 HOURS DIRECTED FOR 10 DAYS active Not Available Not Available No t Available fluticasone propionate 50 mcg/actuati on nasal spray,suspe nsion USE 1 SPRAY(S) IN EACH NOSTRIL ONCE DAILY 02/27 completed Not Available Not Available Not Available amoxicillin 875 mg-potassiu m clavulanate 125 mg tablet TAKE 1 TABLET BY MOUTH TWICE DAILY WITH FOOD active Not Available Not Available No t Available Ventolin HFA 90 mcg/actuati on aerosol inhaler INHALE 1 PUFF BY MOUTH THREE TIMES DAILY active Not Available Not Available No t Available Pain Reliever (acetaminop hen) 500 mg tablet TAKE 2 TABLETS BY MOUTH EVERY 6 HOURS NEEDED FOR 10 DAYS 02/27 completed Not Available Not Available Not Available mirtazapine 7.5 mg tablet active Not Available Not Available Not Available nitrofurant oin monohydrate /macrocryst als 100 mg capsule TAKE 1 CAPSULE BY MOUTH EVERY 12 HOURS FOR 5 DAYS WITH FOOD active Not Available Not Available No t Available FeroSul 325 mg (65 mg iron) tablet TAKE 1 TABLET BY MOUTH ONCE DAILY active Not Available Not Available No t Available Danielle (28) 90 mcg-20 mcg tablet TAKE 1 TABLET BY MOUTH ONCE DAILY 02/27 completed Not Available Not Available Not Available Xulane 150 mcg-35 mcg/24 hr transdermal patch APPLY 1 PATCH TOPICALLY ONCE A WEEK 06/06 completed Not Available Not Available Not Available Fluzone Quad (PF) 60 mcg (15 mcg x 4)/0.5 mL IM syringe PHARMACIS T ADMINISTE RED IMMUNIZAT ION ADMINISTE RED AT TIME OF DISPENSIN G 02/27 completed Not Available Not Available Not Available Vitals Date Recorded Body height Body mass index (BMI) Body weight Systolic blood pressure Diastolic blood pressure Provider Name and Address Organization Details Last Updated DateTime 05/01/2020 156.21 cm 18.2 kg/m2 27049.05 g 129 mm[Hg] 85 mm[Hg] Giselle Munoz [facility] 17:48:11 Date Recorded Body height Body mass index (BMI) Body weight Systolic blood pressure Diastolic blood pressure Provider Name and Address Organization Details Last Updated DateTime 06/06/2020 156.21 cm 16.9 kg/m2 55803.91 g 145 mm[Hg] 86 mm[Hg] Latoya [facility] 15:23:17 Date Recorded Body height Body mass index (BMI) Body weight Systolic blood pressure Diastolic blood pressure Provider Name and Address Organization Details Last Updated DateTime 06/27/2020 156.21 cm 17.1 kg/m2 14450.5 g 117 mm[Hg] 79 mm[Hg] Latoya [facility] 15:57:46 Date Recorded Body height Body mass index (BMI) Body weight Systolic blood pressure Diastolic blood pressure Systolic blood pressure Diastolic blood pressure Provider Name and Address Organization Details Last Updated DateTime 156.21 cm 17.3 kg/m2 33007.0 9 g 134 mm[Hg] 89 mm[Hg] 133 mm[Hg] 88 mm[Hg] Latoya [facility] 12:00:46 Social History Question Answer Notes LastModified by Organizat ion Details LastModified Time Tobacco Smoking Status Current Every Day Smoker Latoya Nguyen [facility] 06/27/2020 15:57:50 Do You Have An Advance Directive? No Information n ot available 06/27/2020 How Many Years Have You Consumed Alcohol? 0 Information not available 06/27/2020 Are You Blind Or Do You Have Difficulty Seeing? No Information n ot available 06/27/2020 What Is Your Level Of Caffeine Consumption? Heavy Information not available 06/27/2020 How Much Tobacco Do You Chew? None Information not available 06/27/2020 In The 14 Days Before Symptom Onset, Have You Had Close Contact With A Laboratory-confirm ed COVID-19 While That Case Was Ill? No Information n ot available 06/27/2020 In The 14 Days Before Symptom Onset, Have You Had Close Contact With A Person Who Is Under Investigation For COVID-19 While That Person Was Ill? No Information not available 06/27/2020 Have You Been To An Area Known To Be High Risk For COVID-19? No Information not available 06/27/2020 Are You Deaf Or Do You Have Serious Difficulty Hearing? No Information not available 06/27/2020 What Type Of Diet Are You Following? REGULAR Information n ot available 06/27/2020 What Is The Highest Grade Or Level Of School You Have Completed Or The Highest Degree You Have Received? [id number] Information not available 06/27/2020 Are There Any Guns Present In Your Home? No Information not available 06/27/2020 What Is Your Current Pack Years? 10packyears Information not available 06/27/2020 Do You Use Protection During Sex? No Information not available 06/27/2020 Do You Use Your Seat Belt Or Car Seat Routinely? Yes Information not available 06/27/2020 Do You Have Smoke And Carbon Monoxide Detectors In Your Home? Yes Information not available 06/27/2020 At What Age Did You Start Smoking Tobacco? 15 Information not available 06/27/2020 How Much Tobacco Do You Smoke? 1 PPD Information not available 06/27/2020 Do You Use Sunscreen Routinely? No Information not available 06/27/2020 Has Tobacco Cessation Counseling Been Provided? No Information not available 06/27/2020 How Many Years Have You Smoked Tobacco? 20 Information not available 03/22/2020 Have You Used IV Drugs? No Information not available 06/27/2020 Sex: Unknown Functional Status Question Answer Note LastModified by Organizat ion Details LastModified Time Do you use any illicit or recreational drugs? No Information not available 03/22/2020 Do you or have you ever used any other forms of tobacco or nicotine? No Information not available 06/27/2020 What is your level of alcohol consumption? None Information not available 03/22/2020 Are you able to walk? YESWOREST Information not available 06/27/2020 What is your exercise level? Occasional Information not available 03/22/2020 Mental Status Question Answer Note LastModified by Organization D etails LastModified Time Do you feel stressed (tense, restless, nervous, or anxious, or unable to sleep at night)? [id number] Information not available 06/27/2020 Family History Nothing Reported. Medical History Condition Response Hypertension Y Gynecological History Statement/Question Response Current Control Method Hysterectom y Obstetrics History GPAL:G 0 P 0 0 0 0 Past Encounters Encounter ID Performer Location Encounter Start Date Encounter Closed Date Diagnosis/Indication Diagnosis SNOMED-CT Code Diagnosis ICD10 Code Diagnosis Note [id number] [facility] [address] [address] 02/28/2020 11:16:55 02/28/2020 14:34:56 Chronic pelvic pain of female 006249893 R10.2 CPP. Suggested we start with updated TVUS & f/u Dr. Tang to ensure we do not feel that surgical interventi on is necessary as it is possible scar tissue/vag cuff issues could also be a factor. We discussed that Pelvic floor PT will likely need to be initiated. Urine neg. But still need to consider possibilit y of IC/PBS. ??Trial of Elavil??? Please remain off HRT/BC patch since HTN not well controlled . Consider SLynd trial. Consider xrays of pelvic/sac ral region to r/o skeletal issues/rad icular pain with c/o pain extending down tops of boths thighs. Mastodynia of left breast [id number] 1669043 N64.4 Will complete US. Urinary tr act infectious disease 95210519 N39.0 [id number] Jae Tang MD [facility] [address] [address] 03/20/2020 09:09:33 03/20/2020 10:02:48 Pain in pelvis 12754065 R10.2 [id number] Jae Tang MD [facility] [address] [address] 03/20/2020 09:10:32 03/20/2020 10:56:43 Menopausal symptom 72814687 N95.1 Pain in pelvis 47896909 R10.2 this patient is a 34-year-ol d female presents for menopausal symptoms and pelvic pain. It is uncertain whether her ovaries have been removed or not. She had hot flashes not long after her surgery was performed. She has been on control pills and control patches for her flashes. Ultrasound was performed today and the ovaries were not visualized . There was lot of bowel gas and her bladder was empty, so, it is not an ideal study. We agreed to check her sex hormones and to get her records on her hysterecto my and her recent ultrasound . A recent ultrasound showed her at [place] to have her ovaries. Will follow-up on these items. She return in about a week to discuss the treatment plan. we spent 25 minutes face-to-fa ce discussing her multiple complex issues. Additional precaution osbaldo measures were taken to minimize potential exposure to the Covid-19 virus during this patient s visit, including available hand coal getter upon arrive, temperatur e check and being asked a series of screening questions. All staff wore face coverings during this encounter, as well as provided additional cleaning and sanitizing of all surfaces, including countertop s, pens, chairs, door handles, light switches, etc, prior to and following the patient s visit. [id number] MD Olivier Bianchi [address] [address] 03/28/2020 15:31:28 04/01/2020 15:36:22 Pain in pelvis 99635424 R10.2 this patient is a 34-year-ol d female presents for follow-up on pelvic pain. Patient is status post hysterecto my and continues to have pelvic pain. The pelvic pain has been previously described. Discussed treatment options today. The patient states that she has her ovaries but she would like her ovaries removed for definitive treatment of her pelvic pain. We agreed to proceed withLaparo scopicbila teraloopho rectomy. patient stands there is risk. She understand s that this may not definitive ly treat her pain. She return for the informed consent process. [id number] Jae Tang MD [facility] [address],[place] [address] 04/16/2020 13:00:26 04/17/2020 15:24:38 Pain in pelvis 49964498 R10.2 this patient is a 34-year-ol d female with severe, intractabl e pelvic pain and endometrio sis. We have agreed to perform laparoscop ic bilateral salpingo-o ophorectom y. She has completed the informed consent process is ready to proceed. Endometrio sis of pelvis 20272336 N80.3 [id number] Jae Tang MD [facility] [address],[place] [address] 04/25/2020 10:40:31 04/25/2020 10:42:50 [id number] Jae Tang MD [facility] [address],[place] [address] 05/01/2020 17:44:15 05/01/2020 21:47:47 Premature ovarian failure [id number] E28.39 this patient is a 34-year-ol d female presents for postop follow-up. She is 1 week postop from a laparoscop ic bilateral cyst salpingo-o ophorectom y. She is recovering normally. She had streak ovariesor ovarianrem nants. Her incisions are clean dry and intact. She will follow-up as needed. We started estradiol 1 mg. I emphasized the importance of her taking Estrogenre placement therapy. [id number] Jae Tang MD [facility] [address],[place] [address] 06/06/2020 15:15:20 06/09/2020 21:32:24 Pain in pelvis 64575021 R10.2 this appears to be continued postop pain. Her healing is delayed. We will continue to manage her pain. She should be on light duty work. Her work may be exacerbati ng her pain. [id number] Jae Tang MD [facility] [address],[place] [address] 06/27/2020 14:47:56 06/27/2020 15:20:43 Pain in pelvis 80936427 R10.2 this appears to be continued postop pain. Her healing is delayed. We will continue to manage her pain. She should be on light duty work. Her work may be exacerbati ng her pain. [id number] Jae Tang MD [facility] [address],[place] [address] 06/27/2020 14:48:22 06/27/2020 17:02:53 Abdominal pain 33799313 R10.9 Right flank pain 2429169 09 R10.9 History of urinary stone [id number] Z87.442 this patient is a 34-year-ol d female with abdominal pain, flank pain and a history of renal stones. We agreed to evaluate the patient with CT of the abdomen pelvis for stones. Patient requires pain control. We will try to arrange pain management for the patient. [id number] Jae Tang MD [facility] [address],[place] [address] 12/20/2020 11:27:05 12/23/2020 15:14:13 Pain in pelvis [id number] R10.2 This patient is a 35-year-ol d female with persistent abdominal pain. I had arranged for pain management for her. She did not show up for that. She needs a primary care doctor to evaluate her abdominal pain. I recommende d that she see 1. She is status post hysterecto my And she had a bilateral salpingo-o ophorectom y at another time. She has no gynecologi c pelvic organs. She will follow up as needed. Health Concerns Section Related Observation LastModified by Organization Detai ls LastModified Time None Recorded Concern Status LastModified by Organization Details LastModified Time None Recorded Advance Directives Directive N: Payers Encounter Date Sequence Insurance Name Policy Number Policy Alvarez Covered Member ID Alvarez Member ID Guarantor Name 05/01/2020 1 [facility] PRIOR TO 08/29/2020 (MEDICAID REPLACEMENT - HMO) Cyndi Delgadillo [id number] Cyndi Delgadillo 06/06/2020 1 [facility] PRIOR TO 08/29/2020 (MEDICAID REPLACEMENT - HMO) Cyndi Delgadillo [id number] Cyndi Delgadillo 06/27/2020 1 [facility] PRIOR TO 08/29/2020 (MEDICAID REPLACEMENT - HMO) Cyndi Delgadillo [id number] Cyndi Delgadillo 06/27/2020 1 [facility] PRIOR TO 08/29/2020 (MEDICAID REPLACEMENT - HMO) Cyndi Delgadillo [id number] Cyndi Delgadillo 12/20/2020 1 [facility] ON OR AFTER 08/29/20 (MEDICAID REPLACEMENT - HMO) Cyndi Delgadillo [id number] Cyndi Delgadillo Notes Date Note Type Note Provider Name and Address Organization Details Recorded Time 05/01/2020 text/html this patient is a 34-year-old female presents for postop follow-up. She is 1 week postop from a laparoscopic bilateral cyst salpingo-oophorect curt. She is recovering normally. She had streak ovaries or ovarian remnants. Her incisions are clean dry and intact. She will follow-up as needed. We started estradiol 1 mg. I emphasized the importance of her taking Estrogen replacement therapy. Jae Tang MD [address], [place], [address], [facility] 05/01/2020 22:08:42 06/06/2020 text/html Beer-Pelvic PainReported bypatient.Location :mid pelvis Onset/Timin-7 days Duration:intermitt ent Quality:pressure Severity:pain level 6-8/10 Context:unrelated to menstrual cycle; history of hysterectomy Alleviating Factors:analgesics ; NSAIDS; Tylenol Associated Symptoms:no constipation; no dyspareunia Jae Tang MD [address], [place], [address], [facility] 06/06/2020 18:30:12 06/27/2020 text/html this patient is a 34-year-old female who presents for abdominal pain. She has right shot heard sharp abdominal pain that radiates to her right flank and lower back. She denies any foul-smelling vaginal discharge or vaginal bleeding. Patient has history of stone. The pain is constant. It is worse with movement. She rates it a 9/10 when it is its worst. It has gotten worse over time. Jae Tang MD [address], [place], [address], [facility] 06/27/2020 17:02:30 12/20/2020 text/html This patient is a 35-year-old female with persistent abdominal pain. I had arranged for pain management for her. She did not show up for that. She needs a primary care doctor to evaluate her abdominal pain. I recommended that she see 1. She is status post hysterectomy And she had a bilateral salpingo-oophorect curt at another time. She has no gynecologic pelvic organs. She will follow up as needed. Jae Tang MD [address], [place], [address], [facility] 12/20/2020 17:29:54 OBGyn Episode Ob Episode Information Episode Created Date Number of Fetuses Patient Bloodtype Patient rh Status Prepregnancy Weight lbs Domestic Partner Domestic Partner Phone Father Name Food Service Hotel Runner Status 02/02/20 20 1 CLOSED Fetus Data First Name Last Name Admitted to NICU Weight (g) Sex Living Outcome Pediatric Complications Fetus ID Race Codes Race Delivery Type [id number] 1 Full Term [id number] Vaginal Delivery Mj Calculation Initial Mj Date Initial Exam Date Initial Exam Provider Initial Ultrasound Date Last Menstrual Period Date Ultra Sound Weeks Gestation 0 Eighteen To Twenty Week Mj Update Ultra Sound Date Fundal Height At Umbil Quickening Date Ultra Sound Latest Weeks Gestation Final Mj Confirmed By Final Mj Confirmed Date Final Mj Date Ultra Sound Latest Days Gestation 0 0 Menstrual History Last Menstrual Date Menses Monthly On Bcp Conception Prior Menses Frequency Hcg Plus Date Menarche Onset Age Delivery Information Delivery Date Delivery Type Labor Anesthesia Weeks Gestation Incision Type Labor Labor Length Hrs Delivered By Post Complications Tubal Sterilization Discharge Date Comments 0 38 Marginal cord insert Discharge Information Feeding Method Contraceptive Method Maternal HG B and HCT Levels
--- OUTSIDE RECORDS SUMMARY | 2024-07-27 10:17 | XMS_ITS | Clinical Summary ---
Author Organization [facility] Fern curtis [facility] Address [address] [place] [address] Care Team Providers Care Form Carpenter Name Role Phone Unavailable Primary Care Provider Unavailabl e Social History Tobacco Use Types Packs/Day Years Used Date Smoking Tobacco: Never Assessed Comments Unknown Sex and Gender Information Value Date Recorded Sex Assigned at Not on file Legal Sex Female 8:49 AM CDT Gender Identity Not on file Sexual Orientation Not on file Plan of Treatment Upcoming Encounters Date Type Department Care Team (Late st Contact Info) Description 09/04/2024 10:30 AM CDT Office Visit [facility] Oncology and Hematology - [place] [address] [facility] [address] [place] [address] Stevenson Birch MD [address] [place] [address] Health Maintenance Due Date Last Done Comments DTAP/TDAP/TD VACCINES (1 - Tdap) 2004 HEPATITIS B VACCINES (1 of 3 - 19+ 3-dose series) 2004 HPV/Cotest (21-29) 2006 CERVICAL CANCER SCREENING 11/18/2015 HPV/Cotest (30-65) 11/18/2015 PAP SMEAR 11/18/2015 INFLUENZA VACCINE (#1) 2023 HPV VACCINES Aged Out No longer eligi ble based on patient's age to complete this topic Insurance MEDICAID [place]
--- OUTSIDE RECORDS SUMMARY | 2024-07-27 10:17 | XMS_ITS | Clinical Summary ---
Author Organization [facility] Address [address] [place] [address] Care Team Providers Care Steam Tender Name Role Phone Sheng Bey MD Primary Care Provider [phone] Source Comments [facility],non-owned Affiliates and Associated Physician Practices is amultiple site organization consisting of ambulatory clinics and hospital sitesin [place], [place], [place] and [place]. This disclosure is being madepursuant to the Care Everywhere program and may not contain all information available regarding this patient. Last updated 17.[facility] Social History Tobacco Use Types Packs/Day Years Used Date Smoking Tobacco: Never Assessed Comments Unknown Sex and Gender Information Value Date Recorded Sex Assigned at Not on file Legal Sex Female 5:[address] RUNNER Gender Identity Not on file Sexual Orientation Not on file Plan of Treatment Health Maintenance Due Date Last Done Comments PAP SMEAR 1985 HIV SCREENING 2000 HEPATITIS C SCREENING 11/13/2003 DTAP/TDAP/TD VACCINES (1 - Tdap) 2004 HEPATITIS B VACCINE (1 of 3 - 19+ 3-dose series) 2004 COVID-19 VACCINE ( - 2023-2 5 season) 2023 DEPRESSION SCREENING 03/01/2024 INFLUENZA VACCINE (Season Ended) 2024 ZOSTER VACCINE (1 of 2) 11/18/2035 HIB VACCINE Aged Out No longer eligi ble based on patient's age to complete this topic HPV VACCINE Aged Out No longer eligi ble based on patient's age to complete this topic MENINGOCOCCAL (Group B) VACC INE SHARED DECISION-MAKING Aged Out No longer eligibl e based on patient's age to complete this topic MENINGOCOCCAL GROUPS A/C/Y/W VACCINE Aged Out No longer eligible b ased on patient's age to complete this topic PNEUMOCOCCAL VACCINE Aged Out No long er eligible based on patient's age to complete this topic Insurance [address] [place] [id number] [facility] Care Teams Steam Tender Relationship Specialty Start Date End Date Sheng Bey MD [address] [facility] [facility] [address] [place] [address] PCP - General Family Medicine 01/07/24
--- OUTSIDE RECORDS SUMMARY | 2024-07-27 10:17 | XMS_ITS | Referral Summary ---
Author Organization [facility] Address [address] [facility] [place] [address] Care Team Providers Care Informatics Analyst Name Role Phone Tre Willard MD Unavailable [phone] Mari Cabral MD Unavailable [phone] Nelly Pike Primary Care Provider [phone] Anaya Jiang NP Unavailable [phone] Allergies Active Allergy Reactions Criticality Noted Date Comments Cephalexin Rash High 07/01/2018 Ibuprofen Stomach upset Low 03/21/2021 Penicillin Rash,Redness Medium 11/07/2021 Tramadol Itching Low 01/01/2017 Venom-Wasp Other (See comments) Medium 03/21/2021 Medications ferrous sulfate 325 mg (65 mg of elemental iron) tabletIndications: Iron Deficiency Anemia Take 325 mg by mouth concrete mason before breakfast 7 Active lovastatin (MEVACOR) 40 mg tabletIndications: mixed hyperlipidemia Take 40 mg by mouth nightly Active atenoloL-chlorthal idone (TENORETIC) 100-25 mg per tabletIndications: hypertension,heart Take 1 tablet by mouth concrete mason before breakfast Active estradioL (ESTRACE) 1 mg tablet Take 0.5 mg by mouth concrete mason before breakfast 1 Active Ventolin HFA 90 [...] (04/06/2022): Added automatically from request for surgery [id number] Compression of common perone al nerve of left lower extremity 11/05/2021 Compression of common perone al nerve of right lower extremity 10/30/2021 Overview (10/30/2021): Added automatically from request for surgery [id number] SVT (supraventricular tachycardia) 12/29/2016 Assessment & Plan (03/22/2017 12:29 PM TRUCK MECHANIC): She is now about 6 weeks out [...] arise. Assessment & Plan (01/05/2017 1:52 PM TRUCK MECHANIC): She has had brief episodes of palpitations [...] Of note, she does have a short [place] interval but her EKG does not appear to have a delta wave. We did discuss the possibility of an accessory pathway as a possible etiology for her tachycardia, although it was not a wide complex tachycardia. Social History Tobacco Use Types Packs/Day Years [...] AM CDT Sexual Orientation Not on file Last Filed Vital Signs Vital Sign Reading Time Taken Comments Blood Pressure 123/69 04/08/2022 9:50 AM TRUCK MECHANIC Pulse 54 04/08/2022 9:50 AM TRUCK MECHANIC Temperature 36.8 C (98.2 F) 04/08/2022 9:30 AM TRUCK MECHANIC Respiratory Rate 10 04/08/2022 9:50 AM TRUCK MECHANIC Oxygen Saturation 100% 04/08/2022 9:50 AM TRUCK MECHANIC Inhaled Oxygen Concentration - - Weight 41.7 kg (92 lb) 04/08/2022 6:38 AM TRUCK MECHANIC Height 154.9 cm (5' 1) 04/08/2022 6:38 AM TRUCK MECHANIC Body Mass Index 17.38 04/08/2022 6:38 AM TRUCK MECHANIC Plan of Treatment Not on file Medical Devices Implanted Type Area Thermometer Production Worker Device Identifier Shelf Expiration Date Model / Serial / Lot ActiveTrak Seprafilm 6x5in Barrier Adhesion Sterile Disposable Latex Free [id number] - [id number] Implanted:Qty : 1 on 11/05/2021 by Aleyda Saba MD at [facility] Other - see comments Right: Leg [facility] Marie [id number] 12/26/2023 [id number] / / [id number] Insurance [place] [facility] * Guarantor: Cyndi Delgadillo Account Type Relation to Patient Date of Phone Billing Address Personal/Family Self 1985 [address] [place] [address] [facility] Care Teams Informatics Analyst Relationship Specialty Start Date End Date Nelly Pike PA [address] [place] [address] PCP - General Physician Journeyman Plumber 06/17/20 Tre Willard MD [address] [address] Consulting Physician Cardiology 12/31/16 Mari Cabral MD [address] [address] Consulting Physician Electrophysiology 12/31/16 Anaya Jiang NP [address] [place] [address] Nurse Practitioner Family Practice 10/29/21
== END 2024-07-27 10:12 | disposition home or self-care (01) ==
LOC: CHSIMG 10:15
PROVIDERS: PCP Emergency Medicine; Visit Provider Emergency Medicine
DX: R10.2 Pelvic and perineal pain (principal)
CPT/HCPCS: 93923